=== PATIENT | male | born 1940 | race Caucasian/White ===

== ENCOUNTER 2016-05-18 15:03 | Inpatient (IN) | payer MEDICARE, BC ==
[~2016-05-18] VITALS: Ht 175.3 cm; Wt 95.2 kg
[~2016-05-18 15:03] MED LIST: ALLO100T PO; AMLO5TAB2 PO; BISO10TA5 PO; CYCL1TAB29 PO; DIPH2.5T14 PO; FENO145T2 PO; FISH1000 PO; GABA300C5 PO; GLIP5TAB8 PO; LOSA50TA PO; LUTE40CA2 PO; OXYBXL10 PO; PYRI200T4 PO; SAXA2.5T2 PO; TEMA30CA PO
[2016-05-18 15:04] VITALS: BP 156/69; PULSE 76; RESP 18; TEMP 97.2; O2SAT 99
[2016-05-18] MEDS ORDERED: SODIUM CHLOR 0.9% 1000 ML INJ 1,000 ML IV SCH (15:29)
[2016-05-18] MEDS ORDERED: ACETAMINOPHEN/HYDROcodone 325 MG/5 MG TAB PO ONE (15:30)
[2016-05-18 15:57] LABS: AUTOMATED NEUTROPHIL # 5.9 TH/MM3 (1.8-7.7); BASOPHIL % 0.5 % (0.0-2.0); EOSINOPHIL % 0.7 % (0.0-4.0); HEMATOCRIT 28.8 % (39.0-51.0); HEMO FLAGS DIFF FINAL; LYMPH % 13.4 % (9.0-44.0); MEAN CELL VOLUME 90.6 FL (80.0-100.0); MEAN CORPUSCULAR HEMOGLOBIN 29.8 PG (27.0-34.0); MEAN CORPUSCULAR HGB CONC 32.9 % (32.0-36.0); MONO % 5.2 % (0.0-8.0); NEUT % 80.2 % (16.0-70.0); PLATELET COUNT 137 TH/MM3 (150-450); RED BLOOD COUNT 3.18 MIL/MM3 (4.50-5.90); WHITE BLOOD COUNT 7.4 TH/MM3 (4.0-11.0)
[2016-05-18 16:02] LABS: BACTERIA, URINE FEW /hpf; BLOOD, URINE SMALL (NEG); COMMENT (UR) CULTURE INDICATED; CULTURE IF INDICATED CULTURE INDICATED; GLUCOSE,URINE TRACE mg/dL (NEG); KETONE, URINE NEG (NEG); MUCUS URINE FEW /lpf (OCC); NITRITE,URINE POS (NEG); PH, URINE 8.5 (5.0-8.5); TRANSITIONAL EPI CELLS, URINE <1 /hpf; TRIPLE PHOSPHATE CRYSTAL,URINE OCC /hpf; URINE COLOR YELLOW (YELLW/STRAW)
--- NOTE | 2016-05-18 16:04 | PD ---
HPI Chief Complaint: Diabetic Time Seen by Provider: 16:00 Travel History International Travel<30 days: No Contact w/Intl Traveler<30days: No Traveled to known affect area: No History of Present Illness HPI 76-year-old male to presents to the ED for evaluation of left ear pain and hypoglycemia as well as failure to thrive. Patient reports that he lives by himself. Apparently patient gets home help at home and the home health nurse was concerned because the house seem to be very unkept and he was found to be more lethargic and more disoriented than usual. Ambulance was called. Ambulance found him to be hypoglycemic and give him some D50 with good results. Per patient his only complaint is of left ear pain. Per patient he feels like a pressure. Per patient the pain feels like a 5 out of 10. He denies any chest pain or shortness of breath. He does state feeling weak. He states feeling tired. He has no family in the area. He has an allergy to penicillin. He denies any recent falls or injuries. He has never been here before for this. He has no pain other than the ear. Denies any discharge. No fevers chills or sweats. Per patient his only medical problem is diabetes. He takes no insulin per patient. PFSH Past Medical History Cancer: Yes Cardiac Catheterization: Yes High Cholesterol: Yes Diabetes: Yes Diminished Hearing: No Gout: Yes Genitourinary: Yes (RENAL INSUFFICIENCY) Hypertension: Yes Insomnia: Yes Kidney Stones: Yes Past Surgical History Cardiac Surgery: Yes (CARDIAC CATH WITH POSSIBLE STENTS PLACED) Genitourinary Surgery: Yes (SEEDS IMPLANTED) Social History Alcohol Use: No Tobacco Use: No Substance Use: No Allergies-Medications (Allergen,Severity, Reaction): Coded Allergies: Penicillin (Verified Allergy, Unknown, 02/16/16) Reported Meds & Prescriptions Reported Meds & Active Scripts Active Ditropan XL 24 HR (Oxybutynin Chloride) 10 Mg Tab 10 Mg PO BID Reported Diphenoxylate-Atropine 2.5-0.025 Mg Tab 1 Tab PO DIRECTED PRN Flexeril (Cyclobenzaprine HCl) 10 Mg Tab 10 Mg PO DIRECTED Fish Oil ([place]-3 Fatty Acids) 1,000 Mg Cap 1,000 Mg PO BID Temazepam 30 Mg Cap 30 Mg PO HS PRN Pyridium (Phenazopyridine HCl) 200 Mg Tab 200 Mg PO DAILY@0600 PRN Onglyza (Saxagliptin) 2.5 Mg Tab 2.5 Mg PO DAILY@0600 Lutein 40 Mg Cap 40 Mg PO DAILY@0600 Losartan (Losartan Potassium) 50 Mg Tab 50 Mg PO BID Glipizide 5 Mg Tab 5 Mg PO BIDAC Take 30 minutes before a meal Gabapentin 300 Mg Cap 300 Mg PO BID Fenofibrate 145 Mg Tab 145 Mg PO BID Bisoprolol (Bisoprolol Fumarate) 10 Mg Tab 10 Mg PO BID Allopurinol 100 Mg Tab 100 Mg PO DAILY@0600 Bisoprolol (Bisoprolol Fumarate) 10 Mg Tab 10 Mg PO DAILY Amlodipine (Amlodipine Besylate) 5 Mg Tab 5 Mg PO DAILY Review of Systems Except as stated in HPI: all other systems reviewed are Neg Physical Exam Narrative GENERAL: SKIN: Warm and dry. HEAD: Atraumatic. Normocephalic. EYES: Pupils equal and round. No scleral icterus. No injection or drainage. ENT: No nasal bleeding or discharge. Mucous membranes pink and moist. Tongue is midline. No uvula deviation. Patient has cerumen impaction bilaterally but more noticeable on the right. Left TM appears to be slightly erythematous but no discharge from the canal. no mastoid tenderness. NECK: Trachea midline. No JVD. CARDIOVASCULAR: Regular rate and rhythm. No murmurs, S3, S4. RESPIRATORY: No accessory muscle use. Clear to auscultation. Breath sounds equal bilaterally. GASTROINTESTINAL: Abdomen soft, non-tender, nondistended. Hepatic and splenic margins not palpable. MUSCULOSKELETAL: Extremities without clubbing, cyanosis, or edema. No obvious deformities. Full range of motion of the upper and lower extremities bilaterally. 2+ pulses bilaterally. NEUROLOGICAL: Awake and alert. No obvious cranial nerve deficits. Motor grossly within normal limits. Five out of 5 muscle strength in the arms and legs. Normal speech. PSYCHIATRIC: Appropriate mood and affect; insight and judgment normal. Data Data Last Documented VS Vital Signs Date Time Temp Pulse Resp B/P Pulse Ox O2 Delivery O2 Flow Rate FiO2 05/18/16 15:04 97.2 76 18 156/69 99 Orders Complete Blood Count With Diff (05/18/16 15:10) Comprehensive Metabolic Panel (05/18/16 15:10) Urinalysis - C+S If Indicated (05/18/16 15:10) Iv Access Insert/Monitor (05/18/16 15:10) Oximetry (05/18/16 15:10) Lipase (05/18/16 15:10) Electrocardiogram (05/18/16 15:29) Creatine Kinase (Cpk) (05/18/16 15:29) Ckmb (Isoenzyme) Profile (05/18/16 15:29) Troponin I (05/18/16 15:29) Magnesium (Mg) (05/18/16 15:29) Thyroid Stimulating Hormone (05/18/16 15:29) Chest, Single Ap (05/18/16 15:29) Ct Brain W/O Iv Contrast(Rout) (05/18/16 15:29) Sodium Chlor 0.9% 1000 Ml Inj (Ns 1000 M (05/18/16 15:29) Acetamin-Hydrocod 325-5 Mg ([place] 5-325 (05/18/16 15:30) Ear Irrigation (05/18/16 15:29) Urine Culture (05/18/16 15:21) CKMB (05/18/16 15:21) CKMB% (05/18/16 15:21) Ciprofloxacin 200 Mg Premix (Cipro 200 M (05/18/16 17:45) Labs Laboratory Tests Test 05/18/16 15:21 White Blood Count 7.4 TH/MM3 Red Blood Count 3.18 MIL/MM3 Hemoglobin 9.5 GM/DL Hematocrit 28.8 % Mean Corpuscular Volume 90.6 FL Mean Corpuscular Hemoglobin 29.8 PG Mean Corpuscular Hemoglobin 32.9 % Concent Red Cell Distribution Width 16.0 % Platelet Count 137 TH/MM3 Mean Platelet Volume 8.5 FL Neutrophils (%) (Auto) 80.2 % Lymphocytes (%) (Auto) 13.4 % Monocytes (%) (Auto) 5.2 % Eosinophils (%) (Auto) 0.7 % Basophils (%) (Auto) 0.5 % Neutrophils # (Auto) 5.9 TH/MM3 Lymphocytes # (Auto) 1.0 TH/MM3 Monocytes # (Auto) 0.4 TH/MM3 Eosinophils # (Auto) 0.0 TH/MM3 Basophils # (Auto) 0.0 TH/MM3 CBC Comment DIFF FINAL Differential Comment Urine Color YELLOW Urine Turbidity HAZY Urine pH 8.5 Urine Specific [place] 1.013 Urine Protein 100 mg/dL Urine Glucose (UA) TRACE mg/dL Urine Ketones NEG mg/dL Urine Occult Blood SMALL Urine Nitrite POS Urine Bilirubin NEG Urine Urobilinogen LESS THAN 2.0 MG/DL Urine Leukocyte Esterase LARGE Urine RBC 30 /hpf Urine WBC 89 /hpf Urine Transitional Epithelial <1 /hpf Cells Urine Triple Phosphate OCC /hpf Crystals Urine Bacteria FEW /hpf Urine Mucus FEW /lpf Microscopic Urinalysis Comment CULTURE INDICATED Sodium Level 144 MEQ/L Potassium Level 5.1 MEQ/L Chloride Level 113 MEQ/L Carbon Dioxide Level 18.6 MEQ/L Anion Gap 12 MEQ/L Blood Urea Nitrogen 70 MG/DL Creatinine 3.55 MG/DL Estimat Glomerular Filtration 17 ML/MIN Rate Random Glucose 83 MG/DL Calcium Level 8.8 MG/DL Total Bilirubin 1.3 MG/DL Aspartate Amino Transf 26 U/L (AST/SGOT) Alanine Aminotransferase 26 U/L (ALT/SGPT) Alkaline Phosphatase 43 U/L Total Creatine Kinase 157 U/L Creatine Kinase MB 1.6 NG/ML Troponin I LESS THAN 0.02 NG/ML Total Protein 6.7 GM/DL Albumin 2.8 GM/DL Lipase 934 U/L Thyroid Stimulating Hormone 1.150 uIU/ML 3rd Gen [facility] Medical Decision Making Medical Screen Exam Complete: Yes Emergency Medical Condition: Yes Medical Record Reviewed: Yes Interpretation(s) CBC & BMP Diagram 05/18/16 15:21 troponin negative UTI this shows signs of infection Lipase was elevated. LFTs within normal limits. Last Impressions Head CT 05/18/16 1529 Signed Impressions: Service Date/Time: May 16:08 - CONCLUSION: No acute intracranial findings. Mathieu Toribio MD Chest X-Ray 05/18/16 1529 Signed Impressions: Service Date/Time: May 15:44 - CONCLUSION: Poor inspiratory chest otherwise no evidence of acute process. Edilson Cullen MD EKG show no sign of acute ischemia or arrhythmia read by me and attending. Differential Diagnosis failure to thrive versus electrolyte abnormality versus hypoglycemia versus inability to take care of self versus fall versus altered mental status versus sepsis Narrative Course 76-year-old male that presents to the ED for evaluation of generalized weakness and inability to take care of self as well as left ear pain. Patient was properly examined and was found to have some impaction bilaterally as well as possible left ear otitis media. Somewhat hard to assess secondary to cerumen impaction does appear to be erythematous and the TM. I recommend irrigation at this time. On regard to his trailer to drive and weakness and do recommend labs and imaging patient apparently was altered and he's not been able to take care of self. From my conversation with the patient is suspect the patient might have early dementia. Patient has home health but there is no family or the home health nurse is not present here to give me any information. Most of the information was obtained from the ambulance as well as the patient himself. Unfortunately patient is not safe discharged at this time so I do recommend possible admission pending labs and imaging. Procedures EKG Prior to Arrival: No Diagnosis Primary Impression: UTI (urinary tract infection) Qualified Code: N30.01 - Acute cystitis with hematuria Additional Impressions: Altered mental status Qualified Code: R41.82 - Altered mental status, unspecified altered mental status type Acute kidney injury superimposed on chronic kidney disease Pancreatitis Qualified Code: K85.90 - Acute pancreatitis, unspecified complication status, unspecified pancreatitis type Admitting Information Admitting Physician Requests: it Chino Stoner May 18, 2016 16:04
--- NOTE | 2016-05-18 16:16 | RADRPT ---
EXAM DATE/TIME: 05/18/2016 15:44 [facility] COMPARISON: No previous studies available for comparison. INDICATIONS : Fever. MEDICAL HISTORY : None. SURGICAL HISTORY : None. ENCOUNTER: Initial ACUITY: 1 day PAIN SCORE: 0/10 LOCATION: Bilateral chest FINDINGS: Lungs are hypoaerated but otherwise clear without evidence of consolidating airspace disease or signi ficant congestion. Heart appears mildly enlarged. CONCLUSION: Poor inspiratory chest otherwise no evidence of acute process. Edilson Cullen MD on May 18, 2016 at 16:14 Board Certified Radiologist. This report was verified electronically.
--- NOTE | 2016-05-18 16:23 | RADRPT ---
EXAM DATE/TIME: 05/18/2016 16:08 [facility] COMPARISON: No previous studies available for comparison. INDICATIONS : Syncope and altered mental status. RADIATION DOSE: 45.00 CTDIvol (mGy) MEDICAL HISTORY : Hypertension. Hypercholesterolemia. Renal failure, chronic. SURGICAL HISTORY : None. ENCOUNTER: Initial ACUITY: 1 day PAIN SCALE: 3/10 LOCATION: cranial TECHNIQUE: Multiple contiguous axial images were obtained of the head. Using automated exposure control and adj ustment of the mA and/or kV according to patient size, radiation dose was kept as low as reasonably a chievable to obtain optimal diagnostic quality images. FINDINGS: CEREBRUM: The ventricles are normal for age. No evidence of midline shift, mass lesion, hemorrhage or acute in farction. No extra-axial fluid collections are seen. POSTERIOR FOSSA: The cerebellum and brainstem are intact. The 4th ventricle is midline. The cerebellopontine angle i s unremarkable. EXTRACRANIAL: The visualized portion of the orbits is intact. SKULL: The calvaria is intact. No evidence of skull fracture. CONCLUSION: No acute intracranial findings. Mathieu Toribio MD on May 18, 2016 at 16:19 Board Certified Radiologist. This report was verified electronically.
[2016-05-18 16:28] LABS: ALKALINE PHOSPHATASE 43 U/L (45-117); ALT (GPT) 26 U/L (12-78); ANION GAP 12 MEQ/L (5-15); AST (GOT) 26 U/L (15-37); BICARBONATE 18.6 MEQ/L (21.0-32.0); BLOOD UREA NITROGEN 70 MG/DL (7-18); CHLORIDE 113 MEQ/L (98-107); GLOMERULAR FILTRATION RATE 17 ML/MIN (>89); POTASSIUM 5.1 MEQ/L (3.5-5.1); SODIUM (NA) 144 MEQ/L (136-145); TOTAL BILIRUBIN ADULT 1.3 MG/DL (0.2-1.0)
[2016-05-18 17:21] LABS: CREATINE KINASE 157 U/L (39-308)
[2016-05-18 17:33] LABS: CKMB 1.6 NG/ML (0.5-3.6)
[2016-05-18] MEDS ORDERED: CIPROFLOXACIN 200 MG PREMIX 100 ML IV ONE (17:45)
[2016-05-18] MEDS ORDERED: LUTE20CA PO (17:47)
[2016-05-18] MEDS ORDERED: HYDR-3516 PO (17:47)
[2016-05-18] MEDS ORDERED: MULT1TAB84 PO (17:47)
[2016-05-18 17:57] LABS: MAGNESIUM 2.1 MG/DL (1.5-2.5)
[2016-05-18] MEDS ORDERED: ONDANSETRON HCL 4 MG/2 ML VIAL IVP PRN (18:30)
[2016-05-18] MEDS ORDERED: NALOXONE HCL 0.4 MG/ML AMP IV PRN (18:30)
[2016-05-18] MEDS ORDERED: ACETAMINOPHEN 325 MG TAB PO PRN (18:30)
[2016-05-18] MEDS ORDERED: SODIUM CHLORIDE 0.9% FLUSH 5 ML FLUSH FLUSH PRN (18:30)
--- NOTE | 2016-05-18 18:35 | HHI.HP ---
HPI [facility] Primary Care Physician Troy Sotelo M.D. 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 Patient presented to the emergency room for complaining of left ear pain, after mental status. Patient is a poor historian, he is complaining of pain. Information is obtained from patient and also from emergency room record. Patient has been living at home, he receives home health care. Home health care nurse was concerned because the house was, patient was found to be more lethargic and disoriented. Ambulance was called and patient was found hypoglycemic, he was given D50 with good results. In the emergency room, patient complained of left ear pain. He complained of pressure. He denied any other symptoms such as chest pain, no shortness of breath. He is complaining of feeling generally weak, has had problems with diarrhea, has had a cough with some sputum. Has a indwelling catheter, denies any painful urination, no bladder spasms. He has not been eating very much. He has no family in town. He does have a history of chronic kidney disease, he has not followed up with Dr. Wade for more than 6 months. He was told that he may need dialysis however he adamantly refuses nephrology consultation and understands the consequences that he may . He is requesting to be a DO NOT RESUSCITATE. Patient was evaluated in the emergency room, she states her did not reveal any acute findings. CT of the head was negative. Laboratory of workup was significant for worsening renal function, patient is to stage V. Lipase was noted elevated, 934. Patient does have prior history of elevated lipase, was evaluated by gastroenterology. Refused HIDA scan. It was thought that elevation was due to chronic kidney disease. He 's noted anemic, hemoglobin 9.5, hematocrit 28.8. Denies any blood in the stool. Urinalysis was positive for leukocyte esterase and bacteria. Blood glucose was 83. Patient was started on empiric antibiotics, fluids have been given. Patient was evaluated and emergency room, he is complaining of left ear pain. Pt. is requesting that I speak to his sister Benita. Patient is admitted for further evaluation and treatment. (Lis Levine) Review of Systems ROS Limitations: Poor Historian Ears, nose, mouth, throat: COMPLAINS OF: Ear Pain (left ear pain) Respiratory: COMPLAINS OF: Cough, Sputum production Gastrointestinal: COMPLAINS OF: Diarrhea Genitourinary: COMPLAINS OF: Urinary incontinence (chronic indwelling catheter for 5 years) (Lis Levine) Past Family Social History Past Medical History prostate cancer status post brachytherapy greater than 5 years ago. 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 Refuse HIDA scan in the past Previous UTIs Chronic indwelling catheter Past Surgical History Cardiac catheterization Prostate seeds implantation Colonoscopy Reported Medications Reported Meds & Active Scripts Active Ditropan XL 24 HR (Oxybutynin Chloride) 10 Mg Tab 10 Mg PO BID Reported Multivitamin Adults (Multiple Vitamins W/ Minerals) 1 Tab 1 Tab PO DAILY Hydrocodone-Acetaminophen 5-325 mg Tab 1 Tab PO Q6H PRN Lutein 20 Mg Cap 20 Mg PO DAILY Fish Oil ([place]-3 Fatty Acids) 1,000 Mg Cap 1,000 Mg PO BID Temazepam 30 Mg Cap 30 Mg PO HS PRN Pyridium (Phenazopyridine HCl) 200 Mg Tab 200 Mg PO DAILY@0600 PRN Onglyza (Saxagliptin) 2.5 Mg Tab 2.5 Mg PO DAILY@0600 Losartan (Losartan Potassium) 50 Mg Tab 50 Mg PO BID Glipizide 5 Mg Tab 5 Mg PO BIDAC Take 30 minutes before a meal Gabapentin 300 Mg Cap 300 Mg PO BID Fenofibrate 145 Mg Tab 145 Mg PO BID Bisoprolol (Bisoprolol Fumarate) 10 Mg Tab 10 Mg PO BID Allopurinol 100 Mg Tab 100 Mg PO DAILY@0600 Bisoprolol (Bisoprolol Fumarate) 10 Mg Tab 10 Mg PO DAILY Amlodipine (Amlodipine Besylate) 5 Mg Tab 5 Mg PO DAILY (Lis Levine) Allergies: Coded Allergies: Penicillin (Verified Allergy, Unknown, 02/16/16) Active Ordered Medications Inpatient Medications Acetaminophen (Tylenol) 650 mg Q4H PRN PO TEMP > 100.4; Start 05/18/16 at 18:30 Acetaminophen/ Hydrocodone Bitart 1 tab 1 tab ONCE ONCE PO Last administered on 05/18/16t 15:43; Start 05/18/16 at 15:30; Stop 05/18/16 at 15:32; Status DC Albuterol/ Ipratropium (Duoneb Neb) 1 ampule Q6HR NEB PRN NEB WHEEZING; Start 05/18/16 at 18:45; Status UNV Amlodipine Besylate (Norvasc) 5 mg DAILY PO ; Start 05/19/16 at 09:00; Status UNV Ciprofloxacin/ Dextrose (Cipro 200 Mg Premix) 100 ml @ 100 mls/hr Q24H IV ; Start 05/19/16 at 09:00 Dextrose (D50w (Vial) Inj) 25 ml UNSCH PRN IV PUSH HYPOGLYCEMIA-SEE COMMENTS; Start 05/18/16 at 18:45; Status UNV Glucagon (Glucagon Inj) 1 mg UNSCH PRN OTHER HYPOGLYCEMIA-SEE COMMENTS; Start 05/18/16 at 18:45; Status UNV Insulin Aspart (NovoLOG SUPPLEMENTAL SCALE) 1 ACHS SLIDING SCALE SQ ; Start 05/18/16 at 21:00; Status UNV IV Flush (NS Flush) 2 ml BID FLUSH ; Start 05/18/16 at 21:00 Naloxone HCl 0.4 mg 0.4 mg UNSCH PRN IV SEE LABEL COMMENTS; Start 05/18/16 at 18 :30 Neomycin/ Polymyxin/ Hydrocortisone (Cortisporin Otic Soln) 3 drop Q6HR LEFT EAR ; Start 05/18/16 at 18:45; Status UNV Non-Formulary Medication 10 mg BID PO INCONTINENCE; Start 05/18/16 at 21:00; Status UNV Ondansetron HCl (Zofran Inj) 4 mg Q6H PRN IVP NAUSEA OR VOMITING; Start at 18:30 Sodium Chloride (NS 1000 ml Inj) 1,000 ml @ 100 mls/hr Q10H IV ; Start 05/18/16 at 18:20 Family History Reports mother from old age. Father had diabetes and from an unknown type of cancer Social History Lives alone, has home health care. Has no children, not . Has a sister who lives in [place]. Denies the use of tobacco, alcohol, illicit drug use ( Lis Levine) Physical Exam Vital Signs Vital Signs Date Time Temp Pulse Resp B/P Pulse Ox O2 Delivery O2 Flow Rate FiO2 05/18/16 15:04 97.2 76 18 156/69 99 Physical Exam GENERAL: This is an elderly male, unkempt, appears older than stated age SKIN: No rashes, ecchymoses or lesions. Cool and dry. HEAD: Atraumatic. Normocephalic. No temporal or scalp tenderness. EYES: Pupils equal round and reactive. Extraocular motions intact. No scleral icterus. No injection or drainage. ENT: Nose without bleeding, purulent drainage or septal hematoma. Throat without erythema, tonsillar hypertrophy or exudate. Uvula midline. Airway patent. NECK: Trachea midline. No JVD or lymphadenopathy. Supple, nontender, no meningeal signs. Right ear with increased cerumen. Left ear with cerumen, meatus erythematous. Left Preauricular tenderness CARDIOVASCULAR: Regular rate and rhythm without murmurs, gallops, or rubs. Bilateral lower extremities without any clubbing, no cyanosis, no edema. Pedal pulses 2+ bilateral RESPIRATORY: Diminished at bases, expiratory wheezing to left lower lobe GASTROINTESTINAL: Abdomen soft, non-tender, nondistended. No hepato-splenomegaly , or palpable masses. No guarding. : Chronic indwelling catheter MUSCULOSKELETAL: Extremities without clubbing, cyanosis, or edema. No joint tenderness, effusion, or edema noted. No calf tenderness. Negative Homans sign bilaterally. NEUROLOGICAL: Awake, alert oriented 3. No focal deficits. Poor historian. Laboratory Laboratory Tests Test 05/18/16 15:21 White Blood Count 7.4 Red Blood Count 3.18 Hemoglobin 9.5 Hematocrit 28.8 Mean Corpuscular Volume 90.6 Mean Corpuscular Hemoglobin 29.8 Mean Corpuscular Hemoglobin 32.9 Concent Red Cell Distribution Width 16.0 Platelet Count 137 Mean Platelet Volume 8.5 Neutrophils (%) (Auto) 80.2 Lymphocytes (%) (Auto) 13.4 Monocytes (%) (Auto) 5.2 Eosinophils (%) (Auto) 0.7 Basophils (%) (Auto) 0.5 Neutrophils # (Auto) 5.9 Lymphocytes # (Auto) 1.0 Monocytes # (Auto) 0.4 Eosinophils # (Auto) 0.0 Basophils # (Auto) 0.0 CBC Comment DIFF FINAL Differential Comment Urine Color YELLOW Urine Turbidity HAZY Urine pH 8.5 Urine Specific [place] 1.013 Urine Protein 100 Urine Glucose (UA) TRACE Urine Ketones NEG Urine Occult Blood SMALL Urine Nitrite POS Urine Bilirubin NEG Urine Urobilinogen LESS THAN 2.0 Urine Leukocyte Esterase LARGE Urine RBC 30 Urine WBC 89 Urine Transitional Epithelial <1 Cells Urine Triple Phosphate OCC Crystals Urine Bacteria FEW Urine Mucus FEW Microscopic Urinalysis Comment CULTURE INDICATED Sodium Level 144 Potassium Level 5.1 Chloride Level 113 Carbon Dioxide Level 18.6 Anion Gap 12 Blood Urea Nitrogen 70 Creatinine 3.55 Estimat Glomerular Filtration 17 Rate Random Glucose 83 Calcium Level 8.8 Magnesium Level 2.1 Total Bilirubin 1.3 Aspartate Amino Transf 26 (AST/SGOT) Alanine Aminotransferase 26 (ALT/SGPT) Alkaline Phosphatase 43 Total Creatine Kinase 157 Creatine Kinase MB 1.6 Troponin I LESS THAN 0.02 Total Protein 6.7 Albumin 2.8 Lipase 934 Thyroid Stimulating Hormone 1.150 3rd Gen Date/Time Procedure Status Source Growth 05/18/16 15:21 Urine Culture Worksheet Urine Clean Catch Pending (Lis Levine) Result Diagram: 05/18/16 1521 05/18/16 1521 Imaging Last Impressions Head CT 05/18/16 1529 Signed Impressions: Service Date/Time: May 16:08 - CONCLUSION: No acute intracranial findings. Mathieu Toribio MD Chest X-Ray 05/18/16 1529 Signed Impressions: Service Date/Time: May 15:44 - CONCLUSION: Poor inspiratory chest otherwise no evidence of acute process. Edilson Cullen MD (Lis Levine) Assessment and Plan Problem List: (1) Altered mental status (2) Pancreatitis (3) UTI (urinary tract infection) (4) Acute kidney injury superimposed on chronic kidney disease (5) Type 2 diabetes mellitus (6) Hypertension (7) Chronic kidney disease (8) Hx of prostatic malignancy (9) Anemia (10) Otitis of left ear (11) Weakness (12) Diarrhea (13) Physical deconditioning Assessment and Plan Admit to Dr. Fortune 76-year-old male with history of chronic kidney disease, 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 Presented to the emergency room with altered mental status, found hypoglycemic. Patient was noted disoriented, living in poor conditions. In the emergency room, patient was evaluated and was found positive for UTI, lipase was noted elevated denies abdominal pain, acute on chronic renal failure, complaining of left ear pain possibly otitis media Altered mental status, likely multifactorial, metabolic encephalopathy with hypoglycemia and worsening renal function, also infection. Improving Continue to monitor neuro status Continue with IV fluids Urinary tract infection, chronic indwelling catheter Continue with antibiotics Follow urine cultures Possible left otitis media Cortisporin Otic drops to the left ear every 6 Reported diarrhea We'll check stools for C. difficile Elevated lipase, etiology unclear, refused HIDA in the past, poss. secondary to CKD -Monitor lipase Hypoglycemia, now resolved, hold oral hypoglycemics Accu-Cheks before meals and at bedtime with insulin therapy Acute on chronic renal failure, stage V-possibly worse secondary to dehydration Patient is refusing renal evaluation, has not seen Dr. Wade in several months. -Patient verbalizes understanding of consequences of decline in renal function, possibly . He is requesting DO NOT RESUSCITATE -Agrees with IV fluid and monitoring her renal function -Avoid nephrotoxic agents History of prostate cancer, follows up with urology as outpatient, recently established himself with Dr. Llanes Recent PSA, appears stable Continue to monitor Anemia, possibly secondary to chronic kidney disease We'll check iron studies Stools for occult blood Generalized weakness, physical deconditioning Physical therapy for evaluation and treatment Home medications reviewed, initiated as indicated Heparin for DVT prophylaxis Case management consultation for SNF placement, discussed with patient in detail , he's not sure about going to rehabilitation facility. He would like to go back home with home health care. Spoke to patient's sister, Benita, she is the only sibling. Questions answered in detail. Discussed end-of-life care issues, pulse of care. Patient refusing renal evaluation, may need hemodialysis at some point. Patient understands the consequences of continued renal failure, possibly . Discussed CODE STATUS , he wants to be a DO NOT RESUSCITATE. Plan of care has been discussed with the patient, attending and registered nurse. Further management of the patient will be dependent on the hospital course This patient was seen by myself and Dr. Fortune, this H&P is written on his behalf (Lis Levine) Assessment and Plan seen and examined by myself,Dr Fortune , Today 05/18/16 at the emergency department room a 11 He is alert and verbal, currently Confused, left-sided earache, general weakness , He is on chronic renal disease, hypoglycemia, guarded prognosis Details as above discussed with nurse Discussed with patient Discussed with mid-level practitioner The exam, history, and the medical decision-making described in the above note were completed with the assistance of the mid-level provider. I reviewed the findings presented. I attest that I had a [id number] encounter with the patient on the same day, and personally performed and documented my assessment and findings in the medical record. (Екатерина Fortune MD) Physician Certification 2 Midnight Certification Type: Admission for Inpatient Services Order for Inpatient Services The services are ordered in accordance with Medicare regulations or non- Medicare payer requirements, as applicable. In the case of services not specified as inpatient-only, they are appropriately provided as inpatient services in accordance with the 2-midnight benchmark. Estimated LOS (days): 2 2 days is the estimated time the patient will need to remain in the hospital, assuming treatment plan goals are met and no additional complications. Post-Hospital Plan: SNF (Lis Levine) Problem Qualifiers (1) Altered mental status: Qualified Code: R41.82 - Altered mental status, unspecified altered mental status type (2) Pancreatitis: Qualified Code: K85.90 - Acute pancreatitis, unspecified complication status, unspecified pancreatitis type (3) UTI (urinary tract infection): Qualified Code: T83.511S - Urinary tract infection associated with indwelling urethral catheter, sequela (4) Type 2 diabetes mellitus: Qualified Code: E11.649 - Type 2 diabetes mellitus with hypoglycemia without coma, without long-term current use of insulin (5) Hypertension: Qualified Code: I10 - Essential hypertension (6) Chronic kidney disease: Qualified Code: N18.5 - Chronic kidney disease, stage 5 (7) Anemia: (8) Diarrhea: Qualified Code: R19.7 - Diarrhea, unspecified type Lis Levine May 18, 2016 18:35 Екатерина Fortune MD May 18, 2016 22:56
[2016-05-18] MEDS ORDERED: NEOMYCIN/POLYMYXIN/HYDROCORT OTIC SOLN 10 ML BTL LEFT EAR ONE (18:45)
[2016-05-18] MEDS ORDERED: DEXTROSE 50% IN WATER 50 ML VIAL(D50) IV PUSH PRN (18:45)
[2016-05-18] MEDS ORDERED: RESP: ALBUTEROL 2.5 MG/IPRATROPIUM 0.5 MG NEB (PRN) NEB (18:45)
[2016-05-18] MEDS ORDERED: GLUCAGON 1 MG/ML VIAL OTHER PRN (18:45)
[2016-05-18 18:52] VITALS: BP 153/80; PULSE 70; RESP 18; O2SAT 99
[2016-05-18] MEDS: SODIUM CHLOR 0.9% 1000 ML INJ 1,000 ML IV SCH (19:41)
[2016-05-18 20:04] VITALS: BP 153/80; PULSE 64; RESP 18; O2SAT 97
[2016-05-18] MEDS: SODIUM CHLORIDE 0.9% FLUSH 5 ML FLUSH FLUSH SCH (20:39)
[2016-05-18] MEDS: RESP: ALBUTEROL 2.5 MG/IPRATROPIUM 0.5 MG NEB (SCH) NEB (20:50)
[2016-05-18] MEDS: INSULIN ASPART SUPPLEMENTAL SCALE SQ SCH (21:00)
[2016-05-18] MEDS: BISOPROLOL 10 MG PO SCH (21:00)
[2016-05-18] MEDS: HEPARIN SODIUM - SQ 10,000 UNITS/ML VIAL SQ SCH (21:03)
[2016-05-18 23:00] LABS: RETIC % 2.2 % (0.4-3.0); REVIEW FLAG FINAL
[2016-05-19] VITALS (8 sets, daily range): BP systolic 116–160; BP diastolic 65–77; PULSE 71–89; RESP 18–20; TEMP 97.6–99.3; O2SAT 95–100
[2016-05-19 00:21] LABS: FERRITIN 496 NG/ML (26-388)
[2016-05-19 00:31] LABS: TRANSFERRIN IRON PROFILE 207 MG/DL (200-360)
[2016-05-19] MEDS: NEOMYCIN/POLYMYXIN/HYDROCORT OTIC SOLN 10 ML BTL LEFT EAR SCH ×5 (01:11→23:26)
[2016-05-19] MEDS: SODIUM CHLOR 0.9% 1000 ML INJ 1,000 ML IV SCH ×3 (04:07→23:26)
[2016-05-19 04:49] LABS: AUTOMATED NEUTROPHIL # 5.3 TH/MM3 (1.8-7.7); BASOPHIL % 0.2 % (0.0-2.0); EOSINOPHIL # 0.1 TH/MM3 (0-0.4); EOSINOPHIL % 0.8 % (0.0-4.0); HEMATOCRIT 26.6 % (39.0-51.0); HEMO FLAGS DIFF FINAL; LYMPH % 15.1 % (9.0-44.0); MEAN CELL VOLUME 90.4 FL (80.0-100.0); MEAN CORPUSCULAR HEMOGLOBIN 30.1 PG (27.0-34.0); MEAN CORPUSCULAR HGB CONC 33.3 % (32.0-36.0); MONO % 5.4 % (0.0-8.0); NEUT % 78.5 % (16.0-70.0); PLATELET COUNT 133 TH/MM3 (150-450); RED BLOOD COUNT 2.95 MIL/MM3 (4.50-5.90); RED CELL DISTRIBUTION WIDTH 15.7 % (11.6-17.2); WHITE BLOOD COUNT 6.7 TH/MM3 (4.0-11.0)
[2016-05-19 05:11] LABS: BICARBONATE 17.9 MEQ/L (21.0-32.0); POTASSIUM 5.2 MEQ/L (3.5-5.1)
[2016-05-19] MEDS: INSULIN ASPART SUPPLEMENTAL SCALE SQ SCH ×4 (06:02→23:22)
[2016-05-19] MEDS: RESP: ALBUTEROL 2.5 MG/IPRATROPIUM 0.5 MG NEB (SCH) NEB ×4 (07:06→21:57)
[2016-05-19] MEDS: amLODIPine BESYLATE 5 MG TAB PO SCH (08:18)
[2016-05-19] MEDS: HEPARIN SODIUM - SQ 10,000 UNITS/ML VIAL SQ SCH ×2 (08:18→23:22)
[2016-05-19] MEDS: BISOPROLOL 10 MG PO SCH ×2 (08:19→21:00)
[2016-05-19] MEDS: SODIUM CHLORIDE 0.9% FLUSH 5 ML FLUSH FLUSH SCH ×2 (08:19→21:00)
[2016-05-19] MEDS ORDERED: SODIUM POLYSTYRENE SULFONATE SUSP 15 GM/60 ML CUP PR ONE (09:00)
--- NOTE | 2016-05-19 09:02 | HHI.PR ---
Subjective Subjective Remarks no cp no sob more awake, oriented x 3 again adamantly refused renal eval and wants to be DNR feeling somewhat better eating okay no fever making urine Review of Systems Constitutional Constitutional Remarks 12 point ROS completed, negative except as noted above Vitals/Results Intake & Output 05/18/16 05/18/16 05/19/16 15:00 23:00 07:00 Intake Total 800 ml Output Total 1100 ml Balance -300 ml Intake IV Total 800 ml Output Urine Total 1100 ml # Bowel Movements 0 Vital Signs Vital Signs Date Time Temp Pulse Resp B/P Pulse Ox O2 Delivery O2 Flow Rate FiO2 05/19/16 08:16 78 18 122/72 100 Room Air 05/19/16 04:01 71 05/19/16 03:33 97.6 84 18 116/67 95 05/19/16 01:00 97.6 74 20 160/70 95 05/18/16 20:04 64 18 153/80 97 Room Air 05/18/16 18:52 70 18 153/80 99 Room Air 05/18/16 15:04 97.2 76 18 156/69 99 CBC/BMP: 05/19/16 0420 05/19/16 0420 Lab Results Laboratory Tests Test 05/18/16 05/19/16 15:21 04:20 White Blood Count 7.4 TH/MM3 6.7 TH/MM3 Red Blood Count 3.18 MIL/MM3 2.95 MIL/MM3 Hemoglobin 9.5 GM/DL 8.9 GM/DL Hematocrit 28.8 % 26.6 % Mean Corpuscular Volume 90.6 FL 90.4 FL Mean Corpuscular Hemoglobin 29.8 PG 30.1 PG Mean Corpuscular Hemoglobin 32.9 % 33.3 % Concent Red Cell Distribution Width 16.0 % 15.7 % Platelet Count 137 TH/MM3 133 TH/MM3 Mean Platelet Volume 8.5 FL 8.6 FL Neutrophils (%) (Auto) 80.2 % 78.5 % Lymphocytes (%) (Auto) 13.4 % 15.1 % Monocytes (%) (Auto) 5.2 % 5.4 % Eosinophils (%) (Auto) 0.7 % 0.8 % Basophils (%) (Auto) 0.5 % 0.2 % Neutrophils # (Auto) 5.9 TH/MM3 5.3 TH/MM3 Lymphocytes # (Auto) 1.0 TH/MM3 1.0 TH/MM3 Monocytes # (Auto) 0.4 TH/MM3 0.4 TH/MM3 Eosinophils # (Auto) 0.0 TH/MM3 0.1 TH/MM3 Basophils # (Auto) 0.0 TH/MM3 0.0 TH/MM3 CBC Comment DIFF FINAL DIFF FINAL Differential Comment Reticulocyte Count 2.2 % Absolute Reticulocyte Count 71.8 MIL/L Urine Color YELLOW Urine Turbidity HAZY Urine pH 8.5 Urine Specific [place] 1.013 Urine Protein 100 mg/dL Urine Glucose (UA) TRACE mg/dL Urine Ketones NEG mg/dL Urine Occult Blood SMALL Urine Nitrite POS Urine Bilirubin NEG Urine Urobilinogen LESS THAN 2.0 MG/DL Urine Leukocyte Esterase LARGE Urine RBC 30 /hpf Urine WBC 89 /hpf Urine Transitional Epithelial <1 /hpf Cells Urine Triple Phosphate OCC /hpf Crystals Urine Bacteria FEW /hpf Urine Mucus FEW /lpf Microscopic Urinalysis Comment CULTURE INDICATED Sodium Level 144 MEQ/L 146 MEQ/L Potassium Level 5.1 MEQ/L 5.2 MEQ/L Chloride Level 113 MEQ/L 115 MEQ/L Carbon Dioxide Level 18.6 MEQ/L 17.9 MEQ/L Anion Gap 12 MEQ/L 13 MEQ/L Blood Urea Nitrogen 70 MG/DL 70 MG/DL Creatinine 3.55 MG/DL 3.57 MG/DL Estimat Glomerular Filtration 17 ML/MIN 17 ML/MIN Rate Random Glucose 83 MG/DL 90 MG/DL Calcium Level 8.8 MG/DL 8.9 MG/DL Magnesium Level 2.1 MG/DL Total Bilirubin 1.3 MG/DL Aspartate Amino Transf 26 U/L (AST/SGOT) Alanine Aminotransferase 26 U/L (ALT/SGPT) Alkaline Phosphatase 43 U/L Total Creatine Kinase 157 U/L Creatine Kinase MB 1.6 NG/ML Troponin I LESS THAN 0.02 NG/ML Total Protein 6.7 GM/DL Albumin 2.8 GM/DL Lipase 934 U/L 808 U/L Thyroid Stimulating Hormone 1.150 uIU/ML 3rd Gen Iron Level 58 MCG/DL Total Iron Binding Capacity 290 MCG/DL Percent Iron Saturation 20.0 % Ferritin 496 NG/ML Vitamin B12 Level 689 PG/ML Microbiology Microbiology 05/18/16 Urine Culture, Worksheet Pending Physical Exam General General Appearance: Well Developed, Well Nourished, No Acute Distress, Comfortable, Obese Eyes Eye Exam: Pupils Equal, Pupils Reactive Ears & Nose Ears & Nose Exam: Nasal Mucosa Rudolph Throat Throat Exam: Oral Mucosa Rudolph & Moist Neck Neck Exam: Neck Supple, Trachea Midline Pulmonary Resp Exam: No Distress Resp Remarks exp. wheeze Cardiology CV Exam: Regular, Good Perfusion Gastrointestinal/Abdomen GI Exam: Soft, Non-Tender, Bowel Sounds Present, Non-Distended Genitourinary Exam: Clear Urine Remarks MCDANIEL Musculoskeletal MS Exam: Joints Intact MS Remarks LT BKA Integumentary Skin Exam: Warm, Dry Extremeties Extremities Exam: No Edema Neurologic Neuro Exam: Alert, Awake, Oriented, Speech Clear, Moving All Extremities, No Focal Deficits Psychiatric Psych Exam: Appropriate Responses VTE Prophylaxis VTE Prophylaxis Meds: Heparin Assessment/Plan Problem List: (1) Altered mental status (2) Weakness (3) UTI (urinary tract infection) (4) Hypertension (5) Type 2 diabetes mellitus (6) Chronic kidney disease (7) Hx of prostatic malignancy (8) Physical deconditioning (9) Otitis of left ear (10) Acute kidney injury superimposed on chronic kidney disease (11) Pancreatitis (12) Diarrhea (13) Anemia Assessment/Plan 76-year-old male with history of chronic kidney disease, 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 Presented to the emergency room with altered mental status, found hypoglycemic. Patient was noted disoriented, living in poor conditions. In the emergency room, patient was evaluated and was found positive for UTI, lipase was noted elevated denies abdominal pain, acute on chronic renal failure, complaining of left ear pain possibly otitis media Altered mental status, likely multifactorial, metabolic encephalopathy with hypoglycemia and worsening renal function, also infection. Improving Continue to monitor neuro status Continue with IV fluids -improving Urinary tract infection, chronic indwelling catheter Continue with antibiotics Follow urine cultures-mixed GNR Possible left otitis media Cortisporin Otic drops to the left ear every 6 Reported diarrhea, no diarrhea We'll check stools for C. difficile Elevated lipase, etiology unclear, refused HIDA in the past, poss. secondary to CKD -Monitor lipase Hypoglycemia, now resolved, hold oral hypoglycemics Accu-Cheks before meals and at bedtime with insulin therapy Acute on chronic renal failure, stage V-possibly worse secondary to dehydration Patient is refusing renal evaluation, has not seen Dr. Wade in several months. -continue IVF -Renal fx unchanged. -Avoid nephrotoxic agents History of prostate cancer, follows up with urology as outpatient, recently established himself with Dr. Llanes Recent PSA, appears stable Continue to monitor Anemia, possibly secondary to chronic kidney disease Low iron stores Stools for occult blood pending -HH stable Generalized weakness, physical deconditioning Physical therapy for evaluation and treatment Heparin for DVT prophylaxis Case management consultation for SNF placement DNR status overall improving, hopefully dc to SNF on Sunday Labs in am D/W RN D/W pt D/W Dr. Fortune This patient was seen by myself and Dr. Fortune, this note is written on his behalf Problem Qualifiers (1) Altered mental status: Qualified Code: R41.82 - Altered mental status, unspecified altered mental status type (2) UTI (urinary tract infection): Qualified Code: T83.511S - Urinary tract infection associated with indwelling urethral catheter, sequela (3) Hypertension: Qualified Code: I10 - Essential hypertension (4) Type 2 diabetes mellitus: Qualified Code: E11.649 - Type 2 diabetes mellitus with hypoglycemia without coma, without long-term current use of insulin (5) Chronic kidney disease: Qualified Code: N18.5 - Chronic kidney disease, stage 5 (6) Pancreatitis: Qualified Code: K85.90 - Acute pancreatitis, unspecified complication status, unspecified pancreatitis type (7) Diarrhea: Qualified Code: R19.7 - Diarrhea, unspecified type (8) Anemia: Lis Levine May 19, 2016 09:01
[2016-05-19] MEDS: CIPROFLOXACIN 200 MG PREMIX 100 ML IV SCH (09:14)
[2016-05-19] MEDS: TOLTERODINE TARTRATE 4 MG CAP LA PO SCH (09:14)
--- NOTE | 2016-05-19 13:28 | EKG ---
Date Performed: 05/18/2016 Time Performed: 16:34:23 PTAGE: 76 years EKG: Sinus rhythm INFERIOR MYOCARDIAL INFARCTION Since previous tracing, no significant change noted ABNORMAL ECG PREVIOUS TRACING : 04/12/2015 13.39 DOCTOR: Gin Light Interpretating Date/Time 05/19/2016 13:28:10
[2016-05-20] VITALS (7 sets, daily range): BP systolic 122–163; BP diastolic 56–78; PULSE 69–76; RESP 18–20; TEMP 97.3–98.5; O2SAT 97–100
[2016-05-20] MEDS: NEOMYCIN/POLYMYXIN/HYDROCORT OTIC SOLN 10 ML BTL LEFT EAR SCH ×3 (05:12→18:00)
[2016-05-20] MEDS: INSULIN ASPART SUPPLEMENTAL SCALE SQ SCH ×4 (06:29→21:00)
[2016-05-20 07:18] LABS: HEMATOCRIT 23.2 % (39.0-51.0); MEAN CELL VOLUME 91.7 FL (80.0-100.0); MEAN CORPUSCULAR HEMOGLOBIN 30.2 PG (27.0-34.0); MEAN CORPUSCULAR HGB CONC 32.9 % (32.0-36.0); PLATELET COUNT 110 TH/MM3 (150-450); RED BLOOD COUNT 2.53 MIL/MM3 (4.50-5.90); RED CELL DISTRIBUTION WIDTH 14.9 % (11.6-17.2); REVIEW FLAG FINAL; WHITE BLOOD COUNT 4.2 TH/MM3 (4.0-11.0)
[2016-05-20] MEDS: RESP: ALBUTEROL 2.5 MG/IPRATROPIUM 0.5 MG NEB (SCH) NEB ×4 (08:00→20:00)
[2016-05-20 08:06] LABS: POTASSIUM 4.6 MEQ/L (3.5-5.1)
[2016-05-20] MEDS: HEPARIN SODIUM - SQ 10,000 UNITS/ML VIAL SQ SCH ×2 (08:19→21:12)
[2016-05-20] MEDS: SODIUM CHLORIDE 0.9% FLUSH 5 ML FLUSH FLUSH SCH ×2 (08:20→21:00)
[2016-05-20] MEDS: amLODIPine BESYLATE 5 MG TAB PO SCH (08:20)
[2016-05-20] MEDS: CIPROFLOXACIN 200 MG PREMIX 100 ML IV SCH (08:20)
[2016-05-20] MEDS: TOLTERODINE TARTRATE 4 MG CAP LA PO SCH (08:21)
[2016-05-20] MEDS: BISOPROLOL 10 MG PO SCH ×2 (08:27→21:00)
--- NOTE | 2016-05-20 10:03 | HHI.PR ---
Subjective Hospital Day: 2 Subjective Remarks no cp no sob denies more awake, oriented x 3 again adamantly refused renal eval and wants to be DNR Weakness Drowsy but answers to verbal stimuli no fever making urine orange clear Review of Systems Constitutional Constitutional: Fatigue, Weakness Constitutional Remarks 10 point ROS done. Weakness fatigue, drowsy but responds to verbal stimuli. Pale. Other systems unremarkable Genitourinary Remarks Bashir catheter, orange clear urine Integumentary Skin Remarks Pale Vitals/Results Intake & Output 05/19/16 05/19/16 05/20/16 15:00 23:00 07:00 Intake Total 240 ml 240 ml 240 ml Output Total 400 ml 850 ml 600 ml Balance -160 ml -610 ml -360 ml Intake Oral 240 ml 240 ml 240 ml Output Urine Total 400 ml 850 ml 600 ml # Bowel Movements 1 1 Vital Signs Vital Signs Date Time Temp Pulse Resp B/P Pulse Ox O2 Delivery O2 Flow Rate FiO2 05/20/16 08:00 98.5 73 18 144/78 98 05/20/16 04:00 97.3 73 20 157/74 98 05/20/16 00:00 98.2 76 18 139/56 98 05/19/16 20:08 82 05/19/16 20:00 98.2 78 18 145/77 98 05/19/16 16:00 98.1 88 20 146/65 97 05/19/16 12:20 99.3 89 20 131/65 100 CBC/BMP: 05/20/16 0533 05/20/16 0533 Lab Results Laboratory Tests Test 05/20/16 05:33 White Blood Count 4.2 TH/MM3 Red Blood Count 2.53 MIL/MM3 Hemoglobin 7.6 GM/DL Hematocrit 23.2 % Mean Corpuscular Volume 91.7 FL Mean Corpuscular Hemoglobin 30.2 PG Mean Corpuscular Hemoglobin 32.9 % Concent Red Cell Distribution Width 14.9 % Platelet Count 110 TH/MM3 Mean Platelet Volume 8.4 FL Sodium Level 146 MEQ/L Potassium Level 4.6 MEQ/L Chloride Level 118 MEQ/L Carbon Dioxide Level 18.0 MEQ/L Anion Gap 10 MEQ/L Blood Urea Nitrogen 59 MG/DL Creatinine 3.08 MG/DL Estimat Glomerular Filtration 20 ML/MIN Rate Random Glucose 139 MG/DL Calcium Level 8.7 MG/DL Imaging Remarks Last Impressions Head CT 05/18/16 1529 Signed Impressions: Service Date/Time: May 16:08 - CONCLUSION: No acute intracranial findings. Mathieu Toribio MD Chest X-Ray 05/18/16 1529 Signed Impressions: Service Date/Time: May 15:44 - CONCLUSION: Poor inspiratory chest otherwise no evidence of acute process. Edilson Cullen MD Physical Exam General General Appearance: Well Developed, Well Nourished, No Acute Distress, Comfortable, Sleeping, Obese Appearance Remarks Drowsy but responds Eyes Eye Exam: Pupils Equal, Pupils Reactive Ears & Nose Ears & Nose Exam: Nasal Mucosa [place] Throat Throat Exam: Oral Mucosa [place] & Moist Neck Neck Exam: Neck Supple, Trachea Midline Pulmonary Resp Exam: No Distress Cardiology CV Exam: Regular, Good Perfusion Gastrointestinal/Abdomen GI Exam: Soft, Non-Tender, Bowel Sounds Present, Non-Distended Genitourinary Exam: Clear Urine Remarks orange clear urine Musculoskeletal MS Exam: Joints Intact Integumentary Skin Exam: Warm, Dry Skin Remarks Pale Extremeties Extremities Exam: No Edema Neurologic Neuro Exam: Alert, Awake, Oriented, Speech Clear, Moving All Extremities, No Focal Deficits Psychiatric Psych Exam: Appropriate Responses VTE Prophylaxis VTE Prophylaxis Meds: Heparin Assessment/Plan Problem List: (1) Altered mental status (2) Weakness (3) UTI (urinary tract infection) (4) Hypertension (5) Type 2 diabetes mellitus (6) Chronic kidney disease (7) Hx of prostatic malignancy (8) Physical deconditioning (9) Otitis of left ear (10) Acute kidney injury superimposed on chronic kidney disease (11) Pancreatitis (12) Diarrhea (13) Anemia Assessment/Plan 76-year-old male with history of chronic kidney disease, 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 Presented to the emergency room with altered mental status, found hypoglycemic. Patient was noted disoriented, living in poor conditions. In the emergency room, patient was evaluated and was found positive for UTI, lipase was noted elevated denies abdominal pain, acute on chronic renal failure, complaining of left ear pain possibly otitis media Altered mental status, likely multifactorial, metabolic encephalopathy with hypoglycemia and worsening renal function, also infection. Improving Continue to monitor neuro status Continue with IV fluids -improving Urinary tract infection, chronic indwelling catheter Continue with antibiotics Follow urine cultures-mixed GNR Possible left otitis media Cortisporin Otic drops to the left ear every 6 Reported diarrhea, no diarrhea We'll check stools for C. difficile Elevated lipase, etiology unclear, refused HIDA in the past, poss. secondary to CKD -Monitor lipase Hypoglycemia, now resolved, hold oral hypoglycemics Accu-Cheks before meals and at bedtime with insulin therapy Acute on chronic renal failure, stage V-possibly worse secondary to dehydration Patient is refusing renal evaluation, has not seen Dr. Wade in several months. -continue IVF -Renal fx unchanged. -Avoid nephrotoxic agents History of prostate cancer, follows up with urology as outpatient, recently established himself with Dr. Llanes Recent PSA, appears stable Continue to monitor Anemia, possibly secondary to chronic kidney disease Low iron stores Stools for occult blood pending -HH low today, 7.6. Will check Hemoccult stool Generalized weakness, physical deconditioning Physical therapy for evaluation and treatment We'll check stool for blood, monitor hemoglobin and recheck labs in the morning. Heparin for DVT prophylaxis Case management consultation for SNF placement DNR status overall improving, hopefully dc to SNF on Sunday Labs in am D/W RN D/W pt D/W Dr. Fortune This patient was seen by myself and Dr. Fortune, this note is written on his behalf Problem Qualifiers (1) Altered mental status: Qualified Code: R41.82 - Altered mental status, unspecified altered mental status type (2) UTI (urinary tract infection): Qualified Code: T83.511S - Urinary tract infection associated with indwelling urethral catheter, sequela (3) Hypertension: Qualified Code: I10 - Essential hypertension (4) Type 2 diabetes mellitus: Qualified Code: E11.649 - Type 2 diabetes mellitus with hypoglycemia without coma, without long-term current use of insulin (5) Chronic kidney disease: Qualified Code: N18.5 - Chronic kidney disease, stage 5 (6) Pancreatitis: Qualified Code: K85.90 - Acute pancreatitis, unspecified complication status, unspecified pancreatitis type (7) Diarrhea: Qualified Code: R19.7 - Diarrhea, unspecified type (8) Anemia: Leidy Garcia May 20, 2016 10:03
[2016-05-20] MEDS: SODIUM CHLOR 0.9% 1000 ML INJ 1,000 ML IV SCH ×2 (10:20→23:46)
[2016-05-21] VITALS: BP 148/70; PULSE 72; RESP 18; TEMP 97.8; O2SAT 98
[2016-05-21 04:00] VITALS: BP_SYST 122; BP_SYST 148; BP_DIAS 60; BP_DIAS 70; PULSE 72; RESP 18; TEMP 98.1; O2SAT 98
[2016-05-21] MEDS: NEOMYCIN/POLYMYXIN/HYDROCORT OTIC SOLN 10 ML BTL EACH EAR SCH ×4 (05:10→17:36)
[2016-05-21] MEDS: INSULIN ASPART SUPPLEMENTAL SCALE SQ SCH ×4 (05:10→21:48)
[2016-05-21 08:00] VITALS: BP 140/77; PULSE 73; RESP 18; TEMP 98.5; O2SAT 99
[2016-05-21] MEDS: RESP: ALBUTEROL 2.5 MG/IPRATROPIUM 0.5 MG NEB (SCH) NEB ×2 (08:03→11:39)
[2016-05-21] MEDS: HEPARIN SODIUM - SQ 10,000 UNITS/ML VIAL SQ SCH ×2 (08:27→21:49)
[2016-05-21] MEDS: CIPROFLOXACIN 200 MG PREMIX 100 ML IV SCH (08:27)
[2016-05-21] MEDS: amLODIPine BESYLATE 5 MG TAB PO SCH (08:27)
[2016-05-21] MEDS: TOLTERODINE TARTRATE 4 MG CAP LA PO SCH (08:27)
[2016-05-21] MEDS: SODIUM CHLORIDE 0.9% FLUSH 5 ML FLUSH FLUSH SCH ×2 (08:27→21:53)
[2016-05-21] MEDS: BISOPROLOL 10 MG PO SCH ×2 (08:28→21:00)
[2016-05-21] MEDS: SODIUM CHLOR 0.9% 1000 ML INJ 1,000 ML IV SCH (09:01)
--- NOTE | 2016-05-21 09:53 | HHI.PR ---
Subjective History of Present Illness Sleeping but arouses to verbal stimuli No chest pain no shortness of breath Generalized weakness Decreased appetite Hospital Day: 3 Review of Systems Constitutional Constitutional: Fatigue, Weakness Constitutional Remarks 10 point ROS done. Weakness fatigue, drowsy but responds to verbal stimuli. Pale, BM, decreased appetite. Other systems unremarkable GI/Abdomen GI/Abdomen Remarks States he had BM, unsure of time Genitourinary Remarks Bashir catheter, yellow urine with some sediment Musculoskeletal MS: Weakness MS Remarks Mild Integumentary Skin Remarks Pale Neurologic Neurologic Remarks Drowsy arouses to verbal and tactile stimuli Psychiatric Psychiatric: Normal Mood Vitals/Results Intake & Output 05/20/16 05/20/16 05/21/16 15:00 23:00 07:00 Intake Total 4148 ml 657 ml 1016 ml Output Total 800 ml 1550 ml Balance 3348 ml 657 ml -534 ml Intake Oral 1000 ml 240 ml IV Total 3148 ml 657 ml 776 ml Output Urine Total 800 ml 1550 ml # Bowel Movements 0 Vital Signs Vital Signs Date Time Temp Pulse Resp B/P Pulse Ox O2 Delivery O2 Flow Rate FiO2 05/21/16 08:00 98.5 73 18 140/77 99 05/21/16 04:00 Room Air 05/21/16 04:00 98.1 72 18 122/60 98 05/21/16 00:00 97.8 72 18 148/70 98 05/21/16 00:00 Room Air 05/20/16 20:00 97.9 70 18 122/64 97 05/20/16 20:00 Room Air 05/20/16 20:00 70 05/20/16 16:00 98.3 70 18 141/73 98 05/20/16 13:16 74 05/20/16 12:00 97.8 69 18 163/72 100 CBC/BMP: 05/20/16 0533 05/20/16 0533 Imaging Remarks Last Impressions Head CT 05/18/16 1529 Signed Impressions: Service Date/Time: May 16:08 - CONCLUSION: No acute intracranial findings. Mathieu Toribio MD Chest X-Ray 05/18/16 1529 Signed Impressions: Service Date/Time: May 15:44 - CONCLUSION: Poor inspiratory chest otherwise no evidence of acute process. Edilson Cullen MD Current Medications Active Medications Neomycin/ Polymyxin/ Hydrocortisone (Cortisporin Otic Soln) 3 drop Q6HR EACH EAR Last administered on 05/21/16t 05:10; Admin Dose 3 DROP; Start 05/21/16 at 00: 00 Physical Exam General General Appearance: Well Developed, Well Nourished, No Acute Distress, Comfortable, Sleeping, Obese Appearance Remarks Drowsy but responds Eyes Eye Exam: Pupils Equal, Pupils Reactive Ears & Nose Ears & Nose Exam: Nasal Mucosa [place] Throat Throat Exam: Oral Mucosa [place] & Moist Neck Neck Exam: Neck Supple, Trachea Midline Pulmonary Resp Exam: No Distress, Diminished Breath Sounds, Poor Inspiratory Effort Cardiology CV Exam: Regular, Good Perfusion CV Remarks Heart rate 79 Gastrointestinal/Abdomen GI Exam: Soft, Non-Tender, Bowel Sounds Present, Non-Distended GI Remarks Round abdomen soft Genitourinary Exam: Clear Urine Remarks Yellow urine with some sediment. Musculoskeletal MS Exam: Joints Intact Integumentary Skin Exam: Warm, Dry Skin Remarks Pale Extremeties Extremities Exam: No Edema Neurologic Neuro Exam: Alert, Awake, Oriented, Speech Clear, Moving All Extremities, No Focal Deficits Psychiatric Psych Exam: Appropriate Responses VTE Prophylaxis VTE Prophylaxis Meds: Heparin Assessment/Plan Problem List: (1) Altered mental status (2) Weakness (3) UTI (urinary tract infection) (4) Hypertension (5) Type 2 diabetes mellitus (6) Chronic kidney disease (7) Hx of prostatic malignancy (8) Physical deconditioning (9) Otitis of left ear (10) Acute kidney injury superimposed on chronic kidney disease (11) Pancreatitis (12) Diarrhea (13) Anemia Assessment/Plan Continue to monitor neuro status, drowsy but we'll respond to verbal stimuli Continue with IV fluids, gentle hydration Urinary tract infection treated. indwelling catheter , will clamp today X 2 hrs , drain bladder and DC Bashir. Patient has problems voiding or has not voided in 8 hours, catheter can be reinserted Continue with antibiotics Possible left otitis media Cortisporin Otic drops to the left ear every 6 No diarrhea today. Stools 2 yesterday. No stool Hemoccult done yet. Hemoglobin 7.6 yesterday, will attempt Hemoccult stool. Asked to do rectal swab and check, if patient will allow. Patient is refusing lab draws. States he wants to be left alone. May want to consider palliative care consult if he continues to refuse treatment. Will discuss with Dr. Fortune Lipase 808, on 23, trending down. Monitor Accu-Cheks before meals and at bedtime with insulin therapy, Acute on chronic renal failure, stage V-possibly worse secondary to dehydration Patient is refusing renal evaluation, has not seen Dr. Wade in several months. -continue IVF, decreased appetite and seeming very little food -Renal fx mild improvement, monitor Anemia, possibly secondary to chronic kidney disease Generalized weakness, physical deconditioning Physical therapy for evaluation and treatment if patient will allow. Heparin for DVT prophylaxis Case management consultation for SNF placement DNR status Discharge planning SNF when stable. D/W RN D/W pt D/W Dr. Fortune This patient was seen by myself and Dr. Fortune, this note is written on his behalf Problem Qualifiers (1) Altered mental status: Qualified Code: R41.82 - Altered mental status, unspecified altered mental status type (2) UTI (urinary tract infection): Qualified Code: T83.511S - Urinary tract infection associated with indwelling urethral catheter, sequela (3) Hypertension: Qualified Code: I10 - Essential hypertension (4) Type 2 diabetes mellitus: Qualified Code: E11.649 - Type 2 diabetes mellitus with hypoglycemia without coma, without long-term current use of insulin (5) Chronic kidney disease: Qualified Code: N18.5 - Chronic kidney disease, stage 5 (6) Pancreatitis: Qualified Code: K85.90 - Acute pancreatitis, unspecified complication status, unspecified pancreatitis type (7) Diarrhea: Qualified Code: R19.7 - Diarrhea, unspecified type (8) Anemia: Leidy Garcia May 21, 2016 09:53 Leidy Garcia May 21, 2016 09:53
[2016-05-21 12:00] VITALS: BP 168/88; PULSE 80; RESP 18; TEMP 98.7; O2SAT 97
[2016-05-21 15:58] LABS: HEMATOCRIT 25.2 % (39.0-51.0); MEAN CELL VOLUME 89.8 FL (80.0-100.0); MEAN CORPUSCULAR HEMOGLOBIN 30.1 PG (27.0-34.0); MEAN CORPUSCULAR HGB CONC 33.5 % (32.0-36.0); PLATELET COUNT 115 TH/MM3 (150-450); RED CELL DISTRIBUTION WIDTH 14.9 % (11.6-17.2); REVIEW FLAG FINAL; WHITE BLOOD COUNT 3.1 TH/MM3 (4.0-11.0)
[2016-05-21 16:00] VITALS: BP 134/77; PULSE 83; RESP 20; TEMP 98.8; O2SAT 99
[2016-05-21 16:08] LABS: BICARBONATE 20.4 MEQ/L (21.0-32.0); POTASSIUM 4.6 MEQ/L (3.5-5.1)
[2016-05-21 20:00] VITALS: BP 133/68; PULSE 70; RESP 20; TEMP 98.6; O2SAT 98
[2016-05-22] VITALS: BP 158/70; PULSE 77; RESP 20; TEMP 98.2; O2SAT 97
[2016-05-22] MEDS: SODIUM CHLOR 0.9% 1000 ML INJ 1,000 ML IV SCH (02:20)
[2016-05-22 04:00] VITALS: BP 148/82; PULSE 73; RESP 20; TEMP 98; O2SAT 98
[2016-05-22] MEDS: NEOMYCIN/POLYMYXIN/HYDROCORT OTIC SOLN 10 ML BTL EACH EAR SCH ×4 (06:00→17:10)
[2016-05-22] MEDS: INSULIN ASPART SUPPLEMENTAL SCALE SQ SCH ×3 (06:10→16:00)
[2016-05-22 08:00] VITALS: BP 139/91; PULSE 74; RESP 20; TEMP 97.3; O2SAT 100
[2016-05-22] MEDS: RESP: ALBUTEROL 2.5 MG/IPRATROPIUM 0.5 MG NEB (SCH) NEB ×3 (08:00→16:00)
[2016-05-22] MEDS: SODIUM CHLORIDE 0.9% FLUSH 5 ML FLUSH FLUSH SCH (09:00)
[2016-05-22] MEDS: BISOPROLOL 10 MG PO SCH (09:00)
[2016-05-22] MEDS: amLODIPine BESYLATE 5 MG TAB PO SCH (09:34)
[2016-05-22] MEDS: TOLTERODINE TARTRATE 4 MG CAP LA PO SCH (09:34)
[2016-05-22] MEDS: HEPARIN SODIUM - SQ 10,000 UNITS/ML VIAL SQ SCH (09:35)
--- NOTE | 2016-05-22 10:35 | HHI.PR ---
Subjective Hospital Day: 3 Subjective Remarks no cp no sob oriented x 3 doing okay no acute changes eating ok doesn't like food much Review of Systems Constitutional Constitutional: Fatigue, Weakness Constitutional Remarks 12 point ROS completed, negative except as noted above Musculoskeletal MS: Weakness Psychiatric Psychiatric: Normal Mood Vitals/Results Intake & Output 05/21/16 05/21/16 05/22/16 15:00 23:00 07:00 Intake Total 1536 ml 663 ml 961 ml Output Total 500 ml 500 ml Balance 1536 ml 163 ml 461 ml Intake Oral 480 ml 280 ml 220 ml IV Total 1056 ml 383 ml 741 ml Output Urine Total 500 ml 500 ml # Bowel Movements 1 Vital Signs Vital Signs Date Time Temp Pulse Resp B/P Pulse Ox O2 Delivery O2 Flow Rate FiO2 05/22/16 08:00 97.3 74 20 139/91 100 05/22/16 04:00 Room Air 05/22/16 04:00 98.0 73 20 148/82 98 05/22/16 00:00 98.2 77 20 158/70 97 05/22/16 00:00 Room Air 05/21/16 20:00 Room Air 05/21/16 20:00 98.6 70 20 133/68 98 05/21/16 16:00 98.8 83 20 134/77 99 05/21/16 12:00 98.7 80 18 168/88 97 CBC/BMP: 05/21/16 1545 05/21/16 1545 Lab Results Laboratory Tests Test 05/21/16 15:45 White Blood Count 3.1 TH/MM3 Red Blood Count 2.80 MIL/MM3 Hemoglobin 8.4 GM/DL Hematocrit 25.2 % Mean Corpuscular Volume 89.8 FL Mean Corpuscular Hemoglobin 30.1 PG Mean Corpuscular Hemoglobin 33.5 % Concent Red Cell Distribution Width 14.9 % Platelet Count 115 TH/MM3 Mean Platelet Volume 8.1 FL Sodium Level 144 MEQ/L Potassium Level 4.6 MEQ/L Chloride Level 115 MEQ/L Carbon Dioxide Level 20.4 MEQ/L Anion Gap 9 MEQ/L Blood Urea Nitrogen 49 MG/DL Creatinine 2.71 MG/DL Estimat Glomerular Filtration 23 ML/MIN Rate Random Glucose 173 MG/DL Calcium Level 8.4 MG/DL Physical Exam General General Appearance: Well Developed, Well Nourished, No Acute Distress, Comfortable, Obese Eyes Eye Exam: Pupils Equal, Pupils Reactive Ears & Nose Ears & Nose Exam: Nasal Mucosa [place] Throat Throat Exam: Oral Mucosa [place] & Moist Neck Neck Exam: Neck Supple, Trachea Midline Pulmonary Resp Exam: No Distress, Diminished Breath Sounds Resp Remarks exp. wheeze Cardiology CV Exam: Regular, Good Perfusion Gastrointestinal/Abdomen GI Exam: Soft, Non-Tender, Bowel Sounds Present, Non-Distended Genitourinary Exam: Clear Urine Remarks MCDANIEL Musculoskeletal MS Exam: Joints Intact MS Remarks LT BKA Integumentary Skin Exam: Warm, Dry Extremeties Extremities Exam: No Edema Neurologic Neuro Exam: Alert, Awake, Oriented, Speech Clear, Moving All Extremities, No Focal Deficits Psychiatric Psych Exam: Appropriate Responses VTE Prophylaxis VTE Prophylaxis Meds: Heparin Assessment/Plan Problem List: (1) Altered mental status (2) Weakness (3) UTI (urinary tract infection) (4) Hypertension (5) Type 2 diabetes mellitus (6) Chronic kidney disease (7) Hx of prostatic malignancy (8) Physical deconditioning (9) Otitis of left ear (10) Acute kidney injury superimposed on chronic kidney disease (11) Pancreatitis (12) Diarrhea (13) Anemia Assessment/Plan 76-year-old male with history of chronic kidney disease, 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 Presented to the emergency room with altered mental status, found hypoglycemic. Patient was noted disoriented, living in poor conditions. In the emergency room, patient was evaluated and was found positive for UTI, lipase was noted elevated denies abdominal pain, acute on chronic renal failure, complaining of left ear pain possibly otitis media Altered mental status, likely multifactorial, metabolic encephalopathy with hypoglycemia and worsening renal function, also infection. Improving Continue to monitor neuro status Continue with IV fluids -improving Urinary tract infection, chronic indwelling catheter Continue with antibiotics Follow urine cultures-mixed GNR -change to PO Cipro Possible left otitis media-resolving, less pain Cortisporin Otic drops to the left ear every 6 Reported diarrhea, no diarrhea no diarrhea since he's been here Elevated lipase, etiology unclear, refused HIDA in the past, poss. secondary to CKD -stable Hypoglycemia, now resolved, hold oral hypoglycemics-resolved now Accu-Cheks before meals and at bedtime with insulin therapy Acute on chronic renal failure, stage V-possibly worse secondary to dehydration Patient is refusing renal evaluation, has not seen Dr. Wade in several months. -DC IVF -Avoid nephrotoxic agents -Renal function has improved somewhat History of prostate cancer, follows up with urology as outpatient, recently established himself with Dr. Llanes Recent PSA, appears stable Continue to monitor Anemia, possibly secondary to chronic kidney disease Low iron stores Stools for occult blood pending-refusing -HH stable Generalized weakness, physical deconditioning Physical therapy for evaluation and treatment Heparin for DVT prophylaxis Case management consultation for SNF placement DNR status Palliative care consult pending hopefully dc to SNF today would benefit from hospice services at SNF, renal function with some improvement but has the potential to decline. Refusing renal eval D/W RN D/W pt D/W Dr. Mederos This patient was seen by myself and Dr. Mederos, this note is written on his behalf Problem Qualifiers (1) Altered mental status: Qualified Code: R41.82 - Altered mental status, unspecified altered mental status type (2) UTI (urinary tract infection): Qualified Code: T83.511S - Urinary tract infection associated with indwelling urethral catheter, sequela (3) Hypertension: Qualified Code: I10 - Essential hypertension (4) Type 2 diabetes mellitus: Qualified Code: E11.649 - Type 2 diabetes mellitus with hypoglycemia without coma, without long-term current use of insulin (5) Chronic kidney disease: Qualified Code: N18.5 - Chronic kidney disease, stage 5 (6) Pancreatitis: Qualified Code: K85.90 - Acute pancreatitis, unspecified complication status, unspecified pancreatitis type (7) Diarrhea: Qualified Code: R19.7 - Diarrhea, unspecified type (8) Anemia: Lis Levine May 22, 2016 10:14
[2016-05-22 12:00] VITALS: BP 156/73; PULSE 70; RESP 20; TEMP 98.5; O2SAT 98
[2016-05-22] MEDS ORDERED: CIPR250T52 PO (13:21)
[2016-05-22] MEDS ORDERED: CORTI10A EACH EAR (13:21)
--- NOTE | 2016-05-22 13:22 | HHI.DCPOC ---
Discharge Care Plan Diagnosis: (1) UTI (urinary tract infection) (2) Altered mental status (3) Hypertension (4) Type 2 diabetes mellitus (5) Physical deconditioning (6) Chronic kidney disease (7) Hx of prostatic malignancy (8) Otitis of left ear (9) Acute kidney injury superimposed on chronic kidney disease Your Health Problems Are: Anxiety Difficulty with ADL Goals to Promote Your Health * To prevent worsening of your condition and complications * To maintain your health at the optimal level Directions to Meet Your Goals Take your medications as prescribed Follow your dietary instruction Follow activity as directed Keep your appointments as scheduled Take your immunizations and boosters as scheduled If your symptoms worsen call your PCP, if no PCP go to Urgent Care Center or Emergency Room Smoking is Dangerous to Your Health. Avoid second hand smoke Call the 24-hour hour crisis hotline for domestic abuse at Lis Levine May 22, 2016 13:22
--- NOTE | 2016-05-22 14:33 | PD.CONS ---
Consult Service Palliative Care Consult Requested By Dr. Fortune Primary Care Physician Troy Sotelo M.D. Reason for Consultation a. To assist with evaluation and management of symptoms including: confusion b. To assist medical decision maker(s) with: better understanding of current medical conditions; weighing benefits/burdens of medical treatment options; making medical treatment decisions. HPI History of Present Illness This 76-year-old man presented to the ED on 05/18/16 with complaints of left ear pain and hypoglycemia and failure to thrive. Patient reported living by himself he does get some help from home health nurse at home, his nurse was concerned because his home was uncapped and she found him to be more lethargic and disoriented than usual. EMS was activated. EMS noted patient hypoglycemic treated with D50. Patient's only other report at that time was of left ear pain , like pressure. Denied chest pain or shortness of breath. Does endorse feeling weak, tired. No fevers or chills. * ED course: Head CT negative for acute findings. CXR= poor inspiratory chest otherwise no acute process. Urine= UTI. Troponins negative. EKG= no acute ischemia or arrhythmia. ENT exam cerumen impaction bilaterally as well as possible left ear otitis media. Difficult to fully assess due to cerumen impaction. Regarding weakness and failure to thrive patient appeared to be altered and not able to take care of himself. ED physician suspects early dementia. No other family present during ED evaluation for further information. Patient considered not a safe discharge home admitted for further evaluation and management of UTI, AMS. * Medical attending notes that on admission H&P patient reporting history of chronic kidney disease. He also reported Poor appetite. No local family. He requested DNR seem to understand consequences. Patient also with prior history of elevated lipase had been evaluated by GI he refused HIDA scan. Elevation possibly related to CKD. Patient also apparently had not followed up with outpatient renal follow-up in several months. Patient initiated on antibiotics. Patient requested medical attending speak with his sister his only sibling. Medical attending did speak with sister Benita. His management was consulted for SNF placement, though patient wanted to return home. Dialysis was also discussed with the patient he refused nephrology evaluation. Lipase trending down--934 on admission, now 808. Very poor oral intake. * Physical therapy evaluation notes patient awake alert and oriented however with some periods of confusion and a fear of falling. Generalized weakness to upper and lower extremities. Had difficulty with mobility was unable to walk secondary to pain and fear of falling. * On 05/21 patient continues to refuse some interventions and treatments requesting to be left alone, requesting to just be comfortable. Palliative care consulted to assist with clarification of goals of treatment. Renal function improved slightly BUN 49, creatinine 2.71. GFR 23. Discussed with medical attending GABRIELA, primary nurse. Patient seen in room no visitors present. He is awake, pleasant. He is mostly oriented though forgetful to details. States it is April, states the year is 2016. States he is at [facility] in [place]. He is not sure why he is in the hospital he tells me because he was at home curled up in a ball. He does not know why he was curled up in a ball. He tells me he has no family locally he does remain in contact with his sister he is able to state her first and last name he pauses to search for words when I asked where she lives. He tells me she is not local though he is unable to name where she lives ([place]). He frequently pauses to find words. He is pleasant, cooperative. He details that he lives at home alone and he has a home health nurse who comes to help him, I attempt to explore what medical needs she helps with he is unable to state this. Gently explore with him that we are concerned he may not be safe to return home alone, he agrees with this and thinks he might need more help in a facility setting. He seems to have very limited insight to his conditions. He does seem to understand what CPR is I explored with him his current DNR status, he tells me that CPR would not be any "quality of life "and that he does not want any machines or heroic things and that limits his time it's his time. He indicates he would want his sister to be a decision-maker for him if he is incapacitated, he appears to understand this well, completed health care surrogate designation with RN witnessing. Also completed community DNR with RN witnessing. Following exam call to sister, spoke with her length, reviewed current conditions, Hospital course, discharge planning, patient recent trajectory/ medical/social history. Function/Cognitive Trajectory Apparently lives at home with home health assisting him. Current weight recorded as 95 kg, note weight from 2015 visit recorded at 108 kg. Patient reported to be decreasingly able to care for himself. Per his sister: Over the past 6 or so months patient has had very slight and slow cognitive decline, sister has noted that he has become inattentive to housekeeping, his home was becoming increasingly unorganized, inattentive to his own health needs, and increasingly forgetful of things like a phone call they had or conversations they had. She also indicates that he would become flustered easily and refuse help when it was offered or when he was told that he needed it. 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 . Review of Systems ROS Limitations: Poor Historian (? mild dementia ) Constitutional: COMPLAINS OF: Generalized weakness, DENIES: Change in appetite , Pain Eyes: DENIES: Vision loss Ears, nose, mouth, throat: DENIES: Throat pain Respiratory: DENIES: Cough, Shortness of breath Cardiovascular: DENIES: Chest pain, Dyspnea on Exertion, Lower Extremity Edema Gastrointestinal: DENIES: Abdominal pain, Constipation, Diarrhea, Nausea, Vomiting, Difficulty Swallowing Musculoskeletal: DENIES: Joint pain Neurologic: DENIES: Headache Past Family Social History Coded Allergies: Penicillin (Verified Allergy, Unknown, 02/16/16) Past Medical History Prostate cancer CKD Diabetes Hyperlipidemia Hypertension Insomnia Renal calculi . Past Surgical History Cardiac catheterization, possible stent placement seeds implanted? Prostate cancer Reported Medications Ditropan XL 24 HR (Oxybutynin Chloride) 10 Mg Tab 10 Mg PO BID Diphenoxylate-Atropine 2.5-0.025 Mg Tab 1 Tab PO DIRECTED PRN Flexeril (Cyclobenzaprine HCl) 10 Mg Tab 10 Mg PO DIRECTED Fish Oil ([place]-3 Fatty Acids) 1,000 Mg Cap 1,000 Mg PO BID Temazepam 30 Mg Cap 30 Mg PO HS PRN Pyridium (Phenazopyridine HCl) 200 Mg Tab 200 Mg PO DAILY@0600 PRN Onglyza (Saxagliptin) 2.5 Mg Tab 2.5 Mg PO DAILY@0600 Lutein 40 Mg Cap 40 Mg PO DAILY@0600 Losartan (Losartan Potassium) 50 Mg Tab 50 Mg PO BID Glipizide 5 Mg Tab 5 Mg PO BIDAC Take 30 minutes before a meal Gabapentin 300 Mg Cap 300 Mg PO BID Fenofibrate 145 Mg Tab 145 Mg PO BID Bisoprolol (Bisoprolol Fumarate) 10 Mg Tab 10 Mg PO BID Allopurinol 100 Mg Tab 100 Mg PO DAILY@0600 Bisoprolol (Bisoprolol Fumarate) 10 Mg Tab 10 Mg PO DAILY Amlodipine (Amlodipine Besylate) 5 Mg Tab 5 Mg PO DAILY . Current Medications Medications (Trade) Dose Ordered Sig/Liliana Route Start Time Stop Time Status Last Admin (NS Flush) 2 ml UNSCH PRN FLUSH 05/18/16 18:30 (NS Flush) 2 ml BID FLUSH 05/18/16 21:00 05/22/16 09:00 (Tylenol) 650 mg Q4H PRN PO 05/18/16 18:30 (Zofran Inj) 4 mg Q6H PRN IVP 05/18/16 18:30 (Narcan Inj) 0.4 mg UNSCH PRN IV 05/18/16 18:30 (Norvasc) 5 mg DAILY PO 05/19/16 09:00 05/22/16 09:34 Patient Own Medication PT OWN MED: BISOPRO... BID PO 05/18/16 21:00 (Detrol La) 4 mg DAILY PO 05/19/16 09:00 05/22/16 09:34 (D50w (Vial) Inj) 25 ml UNSCH PRN IV PUSH 05/18/16 18:45 (Glucagon Inj) 1 mg UNSCH PRN OTHER 05/18/16 18:45 (Heparin Inj) 5,000 units Q12HR SQ 05/18/16 21:00 05/22/16 09:35 (Cortisporin Otic Soln) 3 drop Q6HR EACH EAR 05/21/16 00:00 05/22/16 11:46 (Cipro) 250 mg Q12HR PO 05/22/16 21:00 Family History Per EMR-Reports mother from old age. Father had diabetes and from an unknown type of cancer. Brother around 6 months ago secondary to cardiac issues, was on a heart transplant list Substance Use Tobacco: None Alcohol: None Prescription med abuse: None Illicits: None . 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 Not , no children. Supported by 1 sister who is still living, a brother who is in the past year of heart disease. Sister lives in [place]. Spiritual/Cultural Factors [facility] Surrogate: Copy in medical record (completed HCS designating sister Benita today.) Date completed: 05/22/16 Health Care Surrogate(s): Sister Benita Healy Ethical and Legal Issues Patient appears mostly oriented though at times forgetful. Possibly early dementia. Does seem to be able to participate in decision-making, but this should be shared decision-making supported by his designated surrogate, sister Benita. Physical Exam Vital Signs Date Time Temp Pulse Resp B/P Pulse Ox O2 Delivery O2 Flow Rate FiO2 05/22/16 12:00 98.5 70 20 156/73 98 05/22/16 08:00 97.3 74 20 139/91 100 05/22/16 07:00 Room Air 05/22/16 04:00 Room Air 05/22/16 04:00 98.0 73 20 148/82 98 05/22/16 00:00 98.2 77 20 158/70 97 05/22/16 00:00 Room Air 05/21/16 20:00 Room Air 05/21/16 20:00 98.6 70 20 133/68 98 05/21/16 16:00 98.8 83 20 134/77 99 05/21/16 05/22/16 19:00 07:00 Intake Total 1536 ml 1624 ml Output Total 1000 ml Balance 1536 ml 624 ml Intake Oral 480 ml 500 ml IV Total 1056 ml 1124 ml Output Urine Total 1000 ml # Bowel Movements 1 Exam CONSTITUTIONAL/GENERAL: This is an adequately nourished patient, in no apparent distress. TUBES/LINES/DRAINS: Peripheral IV upper extremity SKIN: No jaundice, rashes, or lesions. A few small scattered ,healing abrasions to left knee. No wounds seen anteriorly. Skin temperature warm. HEAD: Atraumatic. Normocephalic. EYES: Pupils equal and round and reactive. Extraocular motions intact. No scleral icterus. No injection or drainage. Poor dentition. ENT: Artifact appearing. Nose without bleeding or purulent drainage. Throat without visible erythema, exudates, masses, or lesions. NECK: Trachea midline. Supple, nontender. No palpable thyroid enlargement or nodularity. CARDIOVASCULAR: Regular rate and rhythm, no murmurs. No JVD. Peripheral pulses symmetric. RESPIRATORY/CHEST: Symmetric, unlabored respirations on room air.. Clear to auscultation. Breath sounds equal bilaterally. GASTROINTESTINAL: Abdomen soft, non-tender, nondistended. No palpable masses. No guarding. Bowel sounds normoactive. GENITOURINARY: Without palpable bladder distension. Bashir catheter in place clear yellow urine. MUSCULOSKELETAL: Extremities without clubbing, cyanosis, or edema. No joint tenderness or effusion noted. No mottling or clubbing. NEUROLOGICAL: Awake and alert. Oriented times 23, forgetful/confuses details at times. Appears to have limited insight to hospital course. Cooperative, moves all 4 extremities. PSYCHIATRIC: No obvious anxiety/depression. no apparent hallucinations or other psychotic thought process. Diagnostic Tests Laboratory Laboratory Tests Test 05/20/16 05/21/16 05:33 15:45 White Blood Count 4.2 TH/MM3 3.1 TH/MM3 (4.0-11.0) (4.0-11.0) Red Blood Count 2.53 MIL/MM3 2.80 MIL/MM3 (4.50-5.90) (4.50-5.90) Hemoglobin 7.6 GM/DL 8.4 GM/DL (13.0-17.0) (13.0-17.0) Hematocrit 23.2 % 25.2 % (39.0-51.0) (39.0-51.0) Mean Corpuscular Volume 91.7 FL 89.8 FL (80.0-100.0) (80.0-100.0) Mean Corpuscular Hemoglobin 30.2 PG 30.1 PG (27.0-34.0) (27.0-34.0) Mean Corpuscular Hemoglobin 32.9 % 33.5 % Concent (32.0-36.0) (32.0-36.0) Red Cell Distribution Width 14.9 % 14.9 % (11.6-17.2) (11.6-17.2) Platelet Count 110 TH/MM3 115 TH/MM3 (150-450) (150-450) Mean Platelet Volume 8.4 FL 8.1 FL (7.0-11.0) (7.0-11.0) Sodium Level 146 MEQ/L 144 MEQ/L (136-145) (136-145) Potassium Level 4.6 MEQ/L 4.6 MEQ/L (3.5-5.1) (3.5-5.1) Chloride Level 118 MEQ/L 115 MEQ/L (98-107) (98-107) Carbon Dioxide Level 18.0 MEQ/L 20.4 MEQ/L (21.0-32.0) (21.0-32.0) Anion Gap 10 MEQ/L (5-15) 9 MEQ/L (5-15) Blood Urea Nitrogen 59 MG/DL (7-18) 49 MG/DL (7-18) Creatinine 3.08 MG/DL 2.71 MG/DL (0.60-1.30) (0.60-1.30) Estimat Glomerular Filtration 20 ML/MIN (>89) 23 ML/MIN (>89) Rate Random Glucose 139 MG/DL 173 MG/DL (74-106) (74-106) Calcium Level 8.7 MG/DL 8.4 MG/DL (8.5-10.1) (8.5-10.1) Result Diagram: 05/21/16 1545 05/21/16 1545 Microbiology Microbiology Date/Time Procedure Status Source Growth 05/18/16 15:21 Urine Culture - Final Complete Urine Clean Catch Imaging Last Impressions Head CT 05/18/16 1529 Signed Impressions: Service Date/Time: May 16:08 - CONCLUSION: No acute intracranial findings. Mathieu Toribio MD Chest X-Ray 05/18/16 1529 Signed Impressions: Service Date/Time: May 15:44 - CONCLUSION: Poor inspiratory chest otherwise no evidence of acute process. Edilson Cullen MD Patient/Family Conference Family Conference Time (mins): 40 (minutes) Family Conference Location: Bedside, Telephone Issues Discussed: Spoke with patient approximately 20 minutes at bedside, limited exploration of the following: * Palliative care role, purpose, approach * Additional medical, psychosocial, and spiritual history * Patients general health, functional status, and cognitive status leading up to the current hospitalization--patient is somewhat of a poor historian, forgetful * Patient/family understanding of the current medical problems-patient appears to have very limited insight * Patients goals of care as best understood from advance directives and/or conversations and/or values--patient seems to have good understanding of DNR status and that he would not want resuscitation * CODE STATUS-patient desires DNR; appears to understand the benefits/burdens of this * Disposition planning, will need placement * Questions answered to the best of my ability * Palliative care contact information provided Following discussion with patient, also spoke with his sister approximately 20 minutes on the phone regarding the above detailed items. She appears to have a good understanding. She describes a recent trajectory of very mild cognitive decline. I did explore with her dementia process in general and that it sounds as if patient has very early dementia. Her stand this. I did review with her that it would be progressive and he would get worse over time though certainly right now he is having very mild impairment should be expected to continue to have some quality of life. Review he remains at risk for ongoing medical issues /consultations/setbacks. She is supportive of DNR status. Also endorses that patient would not want dialysis if renal function worsened. Review with her discharge planning and process that case management looking at local facilities as patient needing increasing assistance for care, and that he may do better in a assisted setting versus at home alone. All questions answered. 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 Not , no children. Supported by 1 sister who is still living, a brother who is in the past year of heart disease. Sister lives in [place]. Spiritual: [facility] Legal:Patient appears mostly oriented though at times forgetful. Possibly early dementia. Does seem to be able to participate in decision-making, but this should be shared decision-making supported by his designated surrogate, sister Benita. Ethical issues impacting care: Important Contacts sister Benita Healy ([place]) [phone] . Prognosis This patient was admitted for UTI and what appears to be failure to thrive. He may have very mild/early dementia. Appears to have had poor oral intake, possible over some time. Currently with acute on chronic renal insufficiency. She has indicated would not want dialysis or further invasive measures, has requested DNR. He does appear to be stable, and likely with adequate assistance and care such as in an SNF setting he may actually thrive and overall condition improve slightly. Does not appear appropriate for hospice at this time, I have discussed with hospice physician. Code Status: No Code Plan Legal decision maker:Patient appears mostly oriented though at times forgetful. Possibly early dementia. Does seem to be able to participate in decision-making, but this should be shared decision-making supported by his designated surrogate, Goals: Goals of this time are aggressive short of resuscitation. CODE STATUS: DNR SYMPTOMS: --Confusion-patient+ UTI, also likely has early dementia process underlying based on history provided. Currently stable, mostly oriented, ? At baseline --No other symptoms of pain, shortness of breath, agitation reported. We will continue to evaluate. Palliative care will continue to follow during hospital course as condition evolves, to assist patient/decision-maker with understanding of medical conditions, weighing benefits/burdens of treatment options, for clarification of goals of treatment. Additionally will assist with any symptoms of palliative concern Time Spent Total Floor Time (mins): 65 >50% Counseling/Coord of Care: Yes (discussed with RN, case management, medical attending GABRIELA) Thank you for the opportunity to participate in the care of Mr. Cardona. Attestation To help prompt me to consider important information that might be impacting today's encounter and assessment, information from prior notes written by myself or my colleagues may have been "brought forward" into today's note. My signature on this note, however, is an attestation that I personally performed the exam, history, and/or decision-making noted today, and, unless otherwise indicated, the interactions with patient, family, and staff as well as the review of records all occurred today. I also attest that the listed assessment and stated plan reflect my best clinical judgment today based on the combination of historical information, prior notes, and today's exam/ interactions. When time spent is documented, it refers only to time spent today by the signer, or if indicated, combined time spent today by collaborating physician/nurse practitioner. Carol Parks May 22, 2016 14:33
--- NOTE | 2016-05-22 15:24 | HHI.DS ---
Discharge Summary Admission Date May 18, 2016 at 17:47 Discharge Date: May 23, 2016 Admitting Diagnosis altered mental status, UTI, pancreatitis, kidney disease (1) Altered mental status (2) Pancreatitis (3) UTI (urinary tract infection) (4) Acute kidney injury superimposed on chronic kidney disease (5) Type 2 diabetes mellitus (6) Hypertension (7) Chronic kidney disease (8) Hx of prostatic malignancy (9) Anemia (10) Otitis of left ear (11) Weakness (12) Diarrhea (13) Physical deconditioning CBC/BMP: 05/21/16 1545 05/21/16 1545 Significant Findings Laboratory Tests Test 05/20/16 05/21/16 05:33 15:45 Red Blood Count 2.53 MIL/MM3 2.80 MIL/MM3 (4.50-5.90) (4.50-5.90) Hemoglobin 7.6 GM/DL 8.4 GM/DL (13.0-17.0) (13.0-17.0) Hematocrit 23.2 % 25.2 % (39.0-51.0) (39.0-51.0) Platelet Count 110 TH/MM3 115 TH/MM3 (150-450) (150-450) Sodium Level 146 MEQ/L (136-145) Chloride Level 118 MEQ/L 115 MEQ/L (98-107) (98-107) Carbon Dioxide Level 18.0 MEQ/L 20.4 MEQ/L (21.0-32.0) (21.0-32.0) Blood Urea Nitrogen 59 MG/DL (7-18) 49 MG/DL (7-18) Creatinine 3.08 MG/DL 2.71 MG/DL (0.60-1.30) (0.60-1.30) Estimat Glomerular Filtration 20 ML/MIN (>89) 23 ML/MIN (>89) Rate Random Glucose 139 MG/DL 173 MG/DL (74-106) (74-106) White Blood Count 3.1 TH/MM3 (4.0-11.0) Calcium Level 8.4 MG/DL (8.5-10.1) Hospital Course This is a 76-year-old male with significant past medical history of chronic kidney disease, prostate cancer status post brachytherapy, chronic indwelling catheter secondary to 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 Patient presented to the emergency room for complaining of left ear pain, after mental status. Patient is a poor historian, he is complaining of pain. Information is obtained from patient and also from emergency room record. Patient had been living at home, he received home health care. Home health care nurse was concerned because the house was unkept, patient was found to be more lethargic and disoriented. Ambulance was called and patient was found hypoglycemic, he was given D50 with good results. In the emergency room, patient complained of left ear pain. He complained of pressure. He denied any other symptoms such as chest pain, no shortness of breath. He was complaining of feeling generally weak, has had problems with diarrhea, has had a cough with some sputum. Has a indwelling catheter, denied any painful urination, no bladder spasms. He had not been eating very much. He had no family in town. He does have a history of chronic kidney disease, he has not followed up with Dr. Wade for more than 6 months. He was told that he may need dialysis however he adamantly refuses nephrology consultation and understands the consequences that he may . He requested to be a DO NOT RESUSCITATE. Patient was evaluated in the emergency room, CT of the head was negative. Laboratory of workup was significant for worsening renal function, patient stage V. Lipase was noted elevated, 934. Patient does have prior history of elevated lipase, was evaluated by gastroenterology. Refused HIDA scan. It was thought that elevation was due to chronic kidney disease. He was noted anemic, hemoglobin 9.5, hematocrit 28.8. Denied any blood in the stool. Urinalysis was positive for leukocyte esterase and bacteria. Blood glucose was 83. Patient was started on empiric antibiotics, fluids were given. Patient was evaluated and emergency room, he was complaining of left ear pain. Pt. requested that I speak to his sister Benita. 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 Presented to the emergency room with altered mental status, found hypoglycemic. Patient was noted disoriented, living in poor conditions. In the emergency room, patient was evaluated and was found positive for UTI, lipase was noted elevated denies abdominal pain, acute on chronic renal failure, complaining of left ear pain possibly otitis media Altered mental status, likely multifactorial, metabolic encephalopathy with hypoglycemia and worsening renal function, also infection. Improving Continued to monitor neuro status Given IV fluids -Patient improved, did have some forgetfulness but otherwise was back to baseline. He was following commands, was appropriate. Urinary tract infection, chronic indwelling catheter Continued with antibiotics Followed urine cultures-mixed GNR -changed to PO Cipro Possible left otitis media-resolving, less pain Cortisporin Otic drops to the left ear every 6 -Improved Reported diarrhea, no diarrhea no diarrhea during admission Elevated lipase, etiology unclear, refused HIDA in the past, poss. secondary to CKD -stable -Refuse GI evaluation in the past No abdominal pain, tolerated diet well Hypoglycemia, now resolved, hold oral hypoglycemics-resolved now Accu-Cheks before meals and at bedtime with insulin therapy -Was put on diabetic diet and tolerated well Acute on chronic renal failure, stage V-possibly worse secondary to dehydration Patient refusing renal evaluation, had not seen Dr. Wade in several months. -Given IVF -Avoided nephrotoxic agents -Renal function did improve -he had good urine output History of prostate cancer, follows up with urology as outpatient, recently established himself with Dr. Llanes Recent PSA, appears stable Continue to monitor Anemia, possibly secondary to chronic kidney disease Low iron stores Stools for occult blood pending-refusing -HH stable Generalized weakness, physical deconditioning Physical therapy for evaluation and treatment Heparin for DVT prophylaxis Case management consultation for SNF placement, agreeable with going to rehabilitation facility. There was likelihood the patient would need long-term care. DNR status Palliative care consult obtained, patient did not meet criteria for hospice. Palliative care team spoke to patient's sister, she was supportive of brother's decision. Patient's condition improved, was more appropriate, following commands. Patient was tolerating diet well Renal function did improve Vital signs were stable No more episodes of hypoglycemia Patient was discharged to rehabilitation facility in stable condition Pt Condition on Discharge: Stable Discharge Disposition: Discharge to SNF Discharge Instructions DIET: Follow Instructions for: Heart Healthy Diet Activities you can perform: Weight Bearing as [place] Follow up Referrals: PCP Follow-up New Medications: Ciprofloxacin (Cipro) 250 Mg Tab 250 MG PO Q12HR Infection #5 Ref 0 TAB Mnxyhlql-Qgtoqcxbm-IS Otic Drops (Bxvhlsoa-Asqkcrwza-ZZ Otic Drops) 1 % Soln 3 DROP EACH EAR Q6HR Infection Days 3 ML Continued Medications: Allopurinol (Allopurinol) 100 Mg Tab 100 MG PO DAILY@0600 Gout #30 Ref 0 TAB Amlodipine (Amlodipine) 5 Mg Tab 5 MG PO DAILY Blood Pressure Management #30 Ref 0 TAB Bisoprolol (Bisoprolol) 10 Mg Tab 10 MG PO BID Blood Pressure Management #30 Ref 0 TAB Fenofibrate (Fenofibrate) 145 Mg Tab 145 MG PO BID #30 Ref 0 TAB Glipizide (Glipizide) 5 Mg Tab 5 MG PO BIDAC Take 30 minutes before a meal Blood Sugar Management #60 Ref 0 TAB Multiple Vitamins W/ Minerals (Multivitamin Adults) 1 Tab 1 TAB PO DAILY Nutritional Supplement Ref 0 TAB Oxybutynin ER 24 HR (Ditropan XL 24 HR) 10 Mg Tab 10 MG PO BID INCONTINENCE #60 Ref 11 TAB Saxagliptin (Onglyza) 2.5 Mg Tab 2.5 MG PO DAILY@0600 Blood Sugar Management #30 Ref 0 TAB Discontinued Medications: Bisoprolol (Bisoprolol) 10 Mg Tab 10 MG PO DAILY Blood Pressure Management #30 Ref 0 TAB Gabapentin (Gabapentin) 300 Mg Cap 300 MG PO BID #60 Ref 0 CAP Hydrocodone-Acetaminophen (Hydrocodone-Acetaminophen) 5-325 mg Tab 1 TAB PO Q6H PRN PAIN Ref 0 TAB Losartan (Losartan) 50 Mg Tab 50 MG PO BID Blood Pressure Management #30 Ref 0 TAB Lutein (Lutein) 20 Mg Cap 20 MG PO DAILY Nutritional Supplement Ref 0 CAP [place]-3 Fatty Acids (Fish Oil) 1,000 Mg Cap 1000 MG PO BID Phenazopyridine (Pyridium) 200 Mg Tab 200 MG PO DAILY@0600 PRN DYSURIA #90 Ref 0 TAB Temazepam (Temazepam) 30 Mg Cap 30 MG PO HS PRN INSOMNIA #30 Ref 0 CAP Lis Levine May 22, 2016 15:24
[2016-05-22 16:00] VITALS: BP 157/72; PULSE 80; RESP 20; TEMP 98.3; O2SAT 97
[2016-05-22] MEDS ORDERED: CIPROFLOXACIN 250 MG TAB PO SCH (21:00)
== END 2016-05-22 18:45 | DRG 698 ==
LOC: NEDAMB 15:03 → NEDA 17:47 → NEDH 21:50 → N04A 05-19 12:20
PROVIDERS: ADMIT Specialist; ATTEND Specialist
PROC: 3E1B38Z Irrigation of Ear using Irrigating Substance, Percutaneous Approach (ICD-10-PCS; principal; 2016-05-18)
PROC: 3E1B38Z Irrigation of Ear using Irrigating Substance, Percutaneous Approach (ICD-10-PCS; 2016-05-18)
DX: T83.511A Infection and inflammatory reaction due to indwelling urethral catheter, initial encounter (principal); G93.41 Metabolic encephalopathy; N17.9 Acute kidney failure, unspecified; K85.90 Acute pancreatitis without necrosis or infection, unspecified; N18.5 Chronic kidney disease, stage 5; I12.0 Hypertensive chronic kidney disease with stage 5 chronic kidney disease or end stage renal disease; F03.90 Unspecified dementia, unspecified severity, without behavioral disturbance, psychotic disturbance, mood disturbance, and anxiety; E11.22 Type 2 diabetes mellitus with diabetic chronic kidney disease; E11.649 Type 2 diabetes mellitus with hypoglycemia without coma; H66.92 Otitis media, unspecified, left ear; R62.7 Adult failure to thrive; N39.0 Urinary tract infection, site not specified; M10.9 Gout, unspecified; G47.00 Insomnia, unspecified; E78.00 Pure hypercholesterolemia, unspecified; H61.23 Impacted cerumen, bilateral; N39.498 Other specified urinary incontinence; I25.10 Atherosclerotic heart disease of native coronary artery without angina pectoris; Z66 Do not resuscitate; R74.8 Abnormal levels of other serum enzymes; Z60.2 Problems related to living alone; Y84.2 Radiological procedure and radiotherapy as the cause of abnormal reaction of the patient, or of later complication, without mention of misadventure at the time of the procedure; R19.7 Diarrhea, unspecified; E86.0 Dehydration; D63.1 Anemia in chronic kidney disease; Y73.1 Therapeutic (nonsurgical) and rehabilitative gastroenterology and urology devices associated with adverse incidents; Y92.009 Unspecified place in unspecified non-institutional (private) residence as the place of occurrence of the external cause; Y84.6 Urinary catheterization as the cause of abnormal reaction of the patient, or of later complication, without mention of misadventure at the time of the procedure; R26.2 Difficulty in walking, not elsewhere classified; Z51.5 Encounter for palliative care; E78.5 Hyperlipidemia, unspecified; Z87.442 Personal history of urinary calculi; Z88.0 Allergy status to penicillin; Z92.3 Personal history of irradiation; Z79.84 Long term (current) use of oral hypoglycemic drugs; Z87.440 Personal history of urinary (tract) infections; Z83.3 Family history of diabetes mellitus; Z85.46 Personal history of malignant neoplasm of prostate; Z53.29 Procedure and treatment not carried out because of patient's decision for other reasons
CPT/HCPCS: 70450; 71010; 80048; 80053; 81001; 82550; 82552; 82607; 82728; 82948; 83540; 83550; 83690; 83735; 84443; 84484; 85025; 85027; 85044; 87086; 93005; 94640; 94664; 96360; J0744; J1644; J1815; J7030

== ENCOUNTER 2016-06-08 19:15 | Emergency (ER) | payer MEDICARE, BC ==
[~2016-06-08] VITALS: Ht 175.3 cm; Wt 98.0 kg
[~2016-06-08 19:15] MED LIST changes: +CIPR250T52 PO; +CORTI10A EACH EAR; -CYCL1TAB29 PO; -DIPH2.5T14 PO; -FISH1000 PO; -GABA300C5 PO; -LOSA50TA PO; -LUTE40CA2 PO; +MULT1TAB84 PO; -PYRI200T4 PO; -TEMA30CA PO
[2016-06-08 19:20] VITALS: BP 103/59; PULSE 72; RESP 18; TEMP 98.6; O2SAT 98
[2016-06-08] MEDS ORDERED: SODIUM CHLORIDE 0.9% FLUSH 5 ML FLUSH IVF PRN (19:30)
--- NOTE | 2016-06-08 19:30 | PD ---
HPI Chief Complaint: hypoglycemia Time Seen by Provider: 19:30 Travel History International Travel<30 days: No Contact w/Intl Traveler<30days: No History of Present Illness HPI 76-year-old male with a history of prostate cancer with chronic indwelling catheter, diabetes, hypertension, stage IV renal failure is brought to the emergency department by EMS for evaluation of hypoglycemia. The patient was being transported from 1 rehabilitation facility to another and when he was received at the shelter facility he was noted to be unresponsive with a blood sugar of 28. He was given 25 g of D50 by fire rescue and his mental status is back to baseline. His glucose was noted to be 152 after receiving D50. The patient states that he does not remember exactly what happened. He denies any medical complaints at this time. States that he is "feeling much better." He denies any headache, lightheadedness, dizziness, nausea, vomiting, chest pain, shortness of breath, abdominal pain. He only takes oral glipizide for his diabetes, he did take this today. No other complaints. PFSH Past Medical History Cancer: Yes Cardiac Catheterization: Yes High Cholesterol: Yes Diabetes: Yes Diminished Hearing: No Gout: Yes Genitourinary: Yes (RENAL INSUFFICIENCY) Hypertension: Yes Insomnia: Yes Kidney Stones: Yes Past Surgical History Cardiac Surgery: Yes (CARDIAC CATH WITH POSSIBLE STENTS PLACED) Genitourinary Surgery: Yes (SEEDS IMPLANTED) Social History Alcohol Use: No Tobacco Use: No Substance Use: No Allergies-Medications (Allergen,Severity, Reaction): Coded Allergies: Penicillin (Verified Allergy, Unknown, 02/16/16) Reported Meds & Prescriptions Reported Meds & Active Scripts Active Cipro (Ciprofloxacin HCl) 250 Mg Tab 250 Mg PO Q12HR Shbfhwvb-Fusevyini-FT Otic Drops (Neomycin/Polymyxin/Hydrocortisone) 1 % Soln 3 Drop EACH EAR Q6HR 3 Days Ditropan XL 24 HR (Oxybutynin Chloride) 10 Mg Tab 10 Mg PO BID Reported Multivitamin Adults (Multiple Vitamins W/ Minerals) 1 Tab 1 Tab PO DAILY Onglyza (Saxagliptin) 2.5 Mg Tab 2.5 Mg PO DAILY@0600 Glipizide 5 Mg Tab 5 Mg PO BIDAC Take 30 minutes before a meal Fenofibrate 145 Mg Tab 145 Mg PO BID Bisoprolol (Bisoprolol Fumarate) 10 Mg Tab 10 Mg PO BID Allopurinol 100 Mg Tab 100 Mg PO DAILY@0600 Amlodipine (Amlodipine Besylate) 5 Mg Tab 5 Mg PO DAILY Review of Systems Except as stated in HPI: all other systems reviewed are Neg Physical Exam Narrative GENERAL: Well-nourished and well-developed male patient in no acute distress. SKIN: Warm and dry. HEAD: Normocephalic and atraumatic. EYES: No injection, drainage, or hyphema noted. PERRLA. EOMI. ENT: No nasal drainage noted. Oropharynx is clear. NECK: Supple and the trachea is midline. CARDIOVASCULAR: Regular rate and rhythm. RESPIRATORY: Breath sounds are equal bilaterally with no accessory muscle use, wheezing, rhonchi, or crackles. GASTROINTESTINAL: Abdomen is soft, non-tender, and nondistended. MUSCULOSKELETAL: No obvious deformities, swelling, cyanosis, or ecchymosis is present throughout the upper and lower extremities. NEUROLOGICAL: Awake, alert, and oriented. Normal speech and gait. Cranial nerves are grossly intact. Data Data Last Documented VS Vital Signs Date Time Temp Pulse Resp B/P Pulse Ox O2 Delivery O2 Flow Rate FiO2 06/08/16 20:13 99 Room Air 06/08/16 19:20 98.6 72 18 103/59 Orders Electrocardiogram (06/08/16 19:27) Complete Blood Count With Diff (06/08/16 19:27) Comprehensive Metabolic Panel (06/08/16 19:27) Blood Glucose (06/08/16 19:27) Ecg Monitoring (06/08/16 19:27) Iv Access Insert/Monitor (06/08/16 19:27) Oximetry (06/08/16 19:27) Sodium Chloride 0.9% Flush (Ns Flush) (06/08/16 19:30) Labs Laboratory Tests Test 06/08/16 20:10 White Blood Count 5.3 TH/MM3 Red Blood Count 3.89 MIL/MM3 Hemoglobin 11.7 GM/DL Hematocrit 34.1 % Mean Corpuscular Volume 87.7 FL Mean Corpuscular Hemoglobin 30.2 PG Mean Corpuscular Hemoglobin 34.4 % Concent Red Cell Distribution Width 16.0 % Platelet Count 140 TH/MM3 Mean Platelet Volume 9.5 FL Neutrophils (%) (Auto) 71.1 % Lymphocytes (%) (Auto) 22.3 % Monocytes (%) (Auto) 5.7 % Eosinophils (%) (Auto) 0.5 % Basophils (%) (Auto) 0.4 % Neutrophils # (Auto) 3.8 TH/MM3 Lymphocytes # (Auto) 1.2 TH/MM3 Monocytes # (Auto) 0.3 TH/MM3 Eosinophils # (Auto) 0.0 TH/MM3 Basophils # (Auto) 0.0 TH/MM3 CBC Comment DIFF FINAL Differential Comment Sodium Level 134 MEQ/L Potassium Level 4.2 MEQ/L Chloride Level 102 MEQ/L Carbon Dioxide Level 21.6 MEQ/L Anion Gap 10 MEQ/L Blood Urea Nitrogen 62 MG/DL Creatinine 3.20 MG/DL Estimat Glomerular Filtration 19 ML/MIN Rate Random Glucose 97 MG/DL Calcium Level 9.1 MG/DL Total Bilirubin 1.5 MG/DL Aspartate Amino Transf 15 U/L (AST/SGOT) Alanine Aminotransferase 19 U/L (ALT/SGPT) Alkaline Phosphatase 38 U/L Total Protein 7.3 GM/DL Albumin 3.7 GM/DL MDM Medical Decision Making Medical Screen Exam Complete: Yes Emergency Medical Condition: Yes Differential Diagnosis Hypoglycemia versus medication reaction versus altered mental status versus electrolyte abnormality Narrative Course 76-year-old male is brought to the emergency department from his shelter facility for an episode of hypoglycemia with associated altered mental status. Patient is afebrile, vital signs are stable. He was initially noted to be unresponsive with a blood glucose of 28 but responded well to D50 by fire rescue. Patient is now awake, alert and oriented, asking to go home. IV access is obtained, labs and been drawn and sent. [facility] glucose is initially 139 at bedside. We'll continue to monitor every 30 minutes for the next 2 hours. Patient is given juice and full meal to eat. CBC shows mild anemia, otherwise unremarkable. CMP shows stage IV renal failure consistent with previous lab values. Glucose is 97. Patient has remained stable and without complaint while here in the ED. Final glucose is 86. He is requesting to go home. He fells well and labs are reassuring. I discussed with my attending physician Dr. Bhakta who also evaluated the patient and we agree it is appropriate to discharge the patient back to his shelter facility. I did discuss with the patient and include in his discharge instructions that it would probably be best if he not take a sulfonylurea for his diabetes because this is the second time recently he has come in for hypoglycemia. Diagnosis Primary Impression: Hypoglycemia Referrals: Primary Care Physician Patient Instructions: General Instructions, Hypoglycemia in a Person with Diabetes (ED) Additional Instructions: Please discuss with PCP possibly changing patient to a different diabetes medication due to multiple episodes of hypoglycemia in setting of taking glipizide. Return to the ED for any acute worsening of symptoms. Med/Other Pt SpecificInfo: No Change to Meds Disposition: 03 DISCHARGE TO SNF Condition: Stable Diana Fajardo Jun 08, 2016 19:30
[2016-06-08 20:13] VITALS: O2SAT 99
[2016-06-08 20:15] VITALS: BP 111/56; PULSE 66; RESP 18; O2SAT 99
[2016-06-08 20:44] LABS: AUTOMATED NEUTROPHIL # 3.8 TH/MM3 (1.8-7.7); BASOPHIL % 0.4 % (0.0-2.0); EOSINOPHIL % 0.5 % (0.0-4.0); HEMATOCRIT 34.1 % (39.0-51.0); HEMO FLAGS DIFF FINAL; LYMPH % 22.3 % (9.0-44.0); LYMPHOCYTE # 1.2 TH/MM3 (1.0-4.8); MEAN CELL VOLUME 87.7 FL (80.0-100.0); MEAN CORPUSCULAR HEMOGLOBIN 30.2 PG (27.0-34.0); MEAN CORPUSCULAR HGB CONC 34.4 % (32.0-36.0); MONO % 5.7 % (0.0-8.0); NEUT % 71.1 % (16.0-70.0); PLATELET COUNT 140 TH/MM3 (150-450); RED BLOOD COUNT 3.89 MIL/MM3 (4.50-5.90); WHITE BLOOD COUNT 5.3 TH/MM3 (4.0-11.0)
[2016-06-08 21:00] VITALS: BP 111/59; PULSE 64; RESP 18; O2SAT 98
[2016-06-08 21:03] LABS: ANION GAP 10 MEQ/L (5-15); AST (GOT) 15 U/L (15-37); BICARBONATE 21.6 MEQ/L (21.0-32.0); BLOOD UREA NITROGEN 62 MG/DL (7-18); CHLORIDE 102 MEQ/L (98-107); GLOMERULAR FILTRATION RATE 19 ML/MIN (>89); POTASSIUM 4.2 MEQ/L (3.5-5.1); SODIUM (NA) 134 MEQ/L (136-145)
[2016-06-08 21:06] LABS: ALKALINE PHOSPHATASE 38 U/L (45-117); ALT (GPT) 19 U/L (12-78); TOTAL BILIRUBIN ADULT 1.5 MG/DL (0.2-1.0)
--- NOTE | 2016-06-08 21:26 | PD ---
Physical Exam Date Seen by Provider: Jun 08, 2016 Narrative Patient is here for hypoglycemia Data Data Last Documented VS Vital Signs Date Time Temp Pulse Resp B/P Pulse Ox O2 Delivery O2 Flow Rate FiO2 06/08/16 20:13 99 Room Air 06/08/16 19:20 98.6 72 18 103/59 Orders Electrocardiogram (06/08/16 19:27) Complete Blood Count With Diff (06/08/16 19:27) Comprehensive Metabolic Panel (06/08/16 19:27) Blood Glucose (06/08/16 19:27) Ecg Monitoring (06/08/16 19:27) Iv Access Insert/Monitor (06/08/16 19:27) Oximetry (06/08/16 19:27) Sodium Chloride 0.9% Flush (Ns Flush) (06/08/16 19:30) Labs Laboratory Tests Test 06/08/16 20:10 White Blood Count 5.3 TH/MM3 Red Blood Count 3.89 MIL/MM3 Hemoglobin 11.7 GM/DL Hematocrit 34.1 % Mean Corpuscular Volume 87.7 FL Mean Corpuscular Hemoglobin 30.2 PG Mean Corpuscular Hemoglobin 34.4 % Concent Red Cell Distribution Width 16.0 % Platelet Count 140 TH/MM3 Mean Platelet Volume 9.5 FL Neutrophils (%) (Auto) 71.1 % Lymphocytes (%) (Auto) 22.3 % Monocytes (%) (Auto) 5.7 % Eosinophils (%) (Auto) 0.5 % Basophils (%) (Auto) 0.4 % Neutrophils # (Auto) 3.8 TH/MM3 Lymphocytes # (Auto) 1.2 TH/MM3 Monocytes # (Auto) 0.3 TH/MM3 Eosinophils # (Auto) 0.0 TH/MM3 Basophils # (Auto) 0.0 TH/MM3 CBC Comment DIFF FINAL Differential Comment Sodium Level 134 MEQ/L Potassium Level 4.2 MEQ/L Chloride Level 102 MEQ/L Carbon Dioxide Level 21.6 MEQ/L Anion Gap 10 MEQ/L Blood Urea Nitrogen 62 MG/DL Creatinine 3.20 MG/DL Estimat Glomerular Filtration 19 ML/MIN Rate Random Glucose 97 MG/DL Calcium Level 9.1 MG/DL Total Bilirubin 1.5 MG/DL Aspartate Amino Transf 15 U/L (AST/SGOT) Alanine Aminotransferase 19 U/L (ALT/SGPT) Alkaline Phosphatase 38 U/L Total Protein 7.3 GM/DL Albumin 3.7 GM/DL MDM Supervised Visit with ZEENAT: Yes Narrative Course I, Dr. Bhakta, have reviewed the advance practice practitioner's documentation and am in agreement, met with the patient face to face, made the diagnosis, and the medical decision making was done by me. *My assessment and Findings: Patient is now awake and alert and fully oriented. Jennie Bhakta MD Jun 08, 2016 21:26
[2016-06-08 22:00] VITALS: BP 110/65; PULSE 66; RESP 18; O2SAT 98
[2016-06-08 23:00] VITALS: BP 105/64; PULSE 64; RESP 18; O2SAT 97
[2016-06-09 00:49] VITALS: BP 100/62; PULSE 71; RESP 18; O2SAT 97
--- NOTE | 2016-06-09 17:25 | EKG ---
Date Performed: 06/08/2016 Time Performed: 20:05:07 PTAGE: 76 years EKG: Sinus rhythm WITH OCCASIONAL VENTRICULAR PREMATURE COMPLEXES INFERIOR MYOCARDIAL INFARCTION ABNORMAL ECG PREVIOUS TRACING : 05/18/2016 16.34 Since previous tracing, no significant change noted DOCTOR: Zoe Patrick Interpretating Date/Time 06/09/2016 17:17:42
== END 2016-06-09 08:58 ==
LOC: NEPA 19:15
DX: E11.649 Type 2 diabetes mellitus with hypoglycemia without coma (principal); R41.82 Altered mental status, unspecified; D64.9 Anemia, unspecified; I49.3 Ventricular premature depolarization; R94.31 Abnormal electrocardiogram [ECG] [EKG]; I12.9 Hypertensive chronic kidney disease with stage 1 through stage 4 chronic kidney disease, or unspecified chronic kidney disease; N18.4 Chronic kidney disease, stage 4 (severe); E78.00 Pure hypercholesterolemia, unspecified; M10.9 Gout, unspecified; Z87.442 Personal history of urinary calculi
CPT/HCPCS: 80053; 85025; 93005